=== PATIENT | female | born 1950 | race Caucasian/White ===

== ENCOUNTER 2017-10-14 14:12 | Emergency (ER) | payer MEDICARE, OTHER, SELFPAY ==
[2017-10-14 14:13] VITALS: BP 141/79; PULSE 71; RESP 18; TEMP 36.7; O2SAT 98; BMI 27.5
--- NOTE | 2017-10-14 14:24 | RAD_ITS ---
STUDY: X-RAY - LEFT HAND REASON FOR EXAM: Female, 66 years old. Dogbite yesterday. Pain at base of thumb. TECHNIQUE: 6 view(s) of the hand. COMPARISON: None. FINDINGS: Bones: There are no acute osseous abnormalities. Joints: There is mild osteoarthritic changes. Soft tissues: The soft tissues are unremarkable. Foreign body: None RAD/Hand Min 3 Views IMPRESSION: Osteoarthritic changes with no acute pathology. Electronically Signed: Josue Redman MD at 15:44 EST , Service support ,
--- NOTE | 2017-10-14 14:27 | ED.VISSUMM ---
- ER Visit Summary Date of Service: 10/14/17 Chief Complaint: Dog bite left hand History of Present Illness: The patient is a 66 F is right-handed. Her dog bit her left hand yesterday. She has a puncture wound over the thenar eminence with lymphangitis to the antecubital fossa. There is slight soft tissue swelling erythema without warmth or induration of the left thumb. Patient does have history of valvular heart disease, mitral. She denies history of rheumatic fever, SBE, or be immune suppressed for any reason. She denies any antibiotic allergies. She reports pain with movement. Physical Examination: Vital signs are remarkable for an elevated blood pressure of 141/79. There is a puncture wound over the thenar eminence. Palpation of the area results and brown purulent material. There is lymphangitis to the antecubital fossa. There is no epitrochlear or axillary lymphadenopathy. There is no warmth, induration or fluctuance noted of the thumb or hyperthenar eminence. There is soft tissue swelling and fullness. Heart is regular without murmur, gallop or rub. S1 and S2 are normal. Lungs are clear to auscultation with good movement of air bilaterally. Test Results: Three-view x-ray of the hand was obtained with no evidence of foreign body, abnormality the bone or soft tissue air. Emergency Department Course and Treatment: 3 view x-ray of the hand was obtained to evaluate for fractured tooth. Patient will require incision and drainage of the area and irrigation of the area. Since this injury is secondary to a dog bite she received 3.0 g of Unasyn IV piggyback. Since this lymphangitic streak started less than 24 hours most likely this represents a strep infection. Treatment Plan: The thenar eminence was anesthetized with lidocaine by local nutrition. Incision was made. Blunt dissection was undertaken with bloody brown material noted. The cavity was irrigated. A wick was placed. The wound will be dressed. She did receive 3.0 g of Unasyn in the department. Constantine Urbina iii was paged to assure follow-up on Monday for wound check. Disposition: Discharged home with appropriate home-going instructions and prescription for Augmentin 875 mg twice daily #14 Impression: Dog bite/puncture wound thenar eminence left hand with lymphangitis This note was generated with Dragon dictation software. It may contain incorrect words, spelling, and punctuation that were not noted in review of the chart prior to signing ED Disposition - Plan for ED Patient: Disposition: Home or Assisted Living Chief Complaint: Bite Instructions: ED Bite Dog, ED Infec Skin Cellulitis Prescriptions: Amoxicillin/Potassium Clav [Augmentin 875-125 Tablet] 1 ea PO BID #14 tab Referrals: NOT,DEFINED [NON-STAFF] - Constantine Urbina III, MD [STAFF PHYSICIAN] - 2 Days for wound check Additional Instructions: Do not remove dressing and keep absolutely clean and dry. Dr. Constantine Urbina iii was made aware of your presentation and need for follow-up on Monday.
[2017-10-14] MEDS: Diphth,Pertuss(Acell),Tet Vac 0.5 ML Vial IM (15:51)
[2017-10-14 16:09] VITALS: BP 142/87; PULSE 57; RESP 16; O2SAT 97
--- NOTE | 2017-10-14 16:10 | ED.RN ---
THIS RN REVIEWED DISCHARGE INSTRUCTIONS AND HOME GOING PRESCRIPTIONS AND VERBALIZES UNDERSTANDING. THIS RN DRESSED PT WOUND WITH NON ADHEREANT AND GAUZE 4X4 AND WRAPPED PT HAND WITH CLING WRAP. MINIMAL BLEEDING NOTED AT TIME DRESSING WAS APPLIED. PT TOLERATED WELL. ADACEL SITE CLEAR. THIS RN ASSISTED PT IN TYING LACES ON BOOTS AND DRESSING. PT AMBULATORY OUT TO WAITING ROOM WITH NO ASSISTANCE FROM STAFF.
== END 2017-10-14 16:14 | disposition home or self-care (01) ==
PROVIDERS: Emergency Provider Emergency Medicine
DX: S61.432A Puncture wound without foreign body of left hand, initial encounter (principal); W54.0XXA Bitten by dog, initial encounter; L03.124 Acute lymphangitis of left upper limb; B96.89 Other specified bacterial agents as the cause of diseases classified elsewhere; Y93.9 Activity, unspecified; Y92.9 Unspecified place or not applicable; I05.9 Rheumatic mitral valve disease, unspecified
CPT/HCPCS: 10061; 10060; 73130; 90471; 90715; 96365; 99283; J7050; A4216; J0295

== ENCOUNTER 2018-07-27 17:03 | Emergency (ER) | payer MEDICARE, OTHER, SELFPAY ==
[2018-07-27 17:04] VITALS: BP 146/74; PULSE 67; RESP 16; TEMP 37.3; O2SAT 100; BMI 26.2
[2018-07-27 17:09] VITALS: O2SAT 100
--- NOTE | 2018-07-27 17:21 | CT_ITS ---
STUDY: CT BRAIN WITHOUT CONTRAST REASON FOR EXAM: Female, 67 years old. Trauma. Fell from horse. RADIATION DOSAGE (If Supplied By Facility): CTDIvol = ( 44.99 ) mGy, DLP = ( 829.85 ) mGycm TECHNIQUE: Transaxial CT imaging of the brain was performed without administration of intravenous contrast material. Individualized dose optimization techniques were used for this CT. COMPARISON: None. FINDINGS: Normal soft tissue structures. Normal calvarium. Normal size ventricles and extra-axial spaces for the patient's age. Normal white matter tracts of the cerebral hemispheres. Normal basal ganglia and thalami. Normal brainstem. Normal cerebellum. There is no intracranial hemorrhage. There are no findings of an acute ischemic infarction. Normal visualized paranasal sinuses. CT/Brain/Head without Contrast IMPRESSION: Normal unenhanced CT scan of the brain. Electronically Signed: Edward Faust DO at 20:01 EST Tel [phone], Service support ,
--- NOTE | 2018-07-27 17:21 | CT_ITS ---
STUDY: CT CHEST WITH CONTRAST REASON FOR EXAM: Female, 67 years old. Fall from horse. Trauma. RADIATION DOSAGE (If Supplied By Facility): CTDIvol = ( 17.76 ) mGy, DLP = ( 2166.88 ) mGycm TECHNIQUE: Transaxial imaging was performed following intravenous administration of 100 ml of Isovue 370 contrast material. Multiplanar coronal and sagittal images were reformatted. Individualized dose optimization techniques were used for this CT. COMPARISON: None. FINDINGS: The lungs are well-expanded. There is no mass or infiltrate. There are minimal dependent changes posteriorly. There is no pneumothorax. There is no demonstrated pleural abnormality. Normal heart and pericardium. Normal mediastinum. Normal hilar regions. Normal enhanced pulmonary arteries. Normal aorta arch and descending thoracic aorta. Normal osseous structures. There is no demonstrated abnormality of the visualized upper abdomen. CT/Chest WITH Contrast IMPRESSION: Normal enhanced CT Chest examination. Electronically Signed: Edward Faust DO at 20:00 EST Tel [phone], Service support ,
--- NOTE | 2018-07-27 17:21 | CT_ITS ---
STUDY: CT THORACIC SPINE WITHOUT CONTRAST REASON FOR EXAM: Female, 67 years old. Back pain after falling from a horse. RADIATION DOSAGE (If Supplied By Facility): CTDIvol = ( 29.82 ) mGy, DLP = ( 1119.66 ) mGycm TECHNIQUE: The patient was scanned in a multi detector CT scanner. High resolution imaging was performed. Images were obtained from T1 to L1. Sagittal and coronal images were reconstructed. Individualized dose optimization techniques were used for this CT. COMPARISON: None. FINDINGS: Normal kyphosis of the thoracic spine. There is no substantial scoliosis. Normal thoracic vertebrae and endplates. Mild degenerative disc changes of the mid and lower thoracic spine. Negative for fracture of the thoracic spine. The soft tissue structures are unremarkable. CT/Spine Thoracic without Contras IMPRESSION: Normal alignment of the thoracic spine without acute fracture deformity. Mild degenerative disc changes of the mid and lower thoracic spine. Electronically Signed: Isaura Felipe MD at 20:18 EST , Service support ,
--- NOTE | 2018-07-27 17:21 | CT_ITS ---
STUDY: CT CERVICAL SPINE WITHOUT CONTRAST REASON FOR EXAM: Female, 67 years old. Fall from horse. RADIATION DOSAGE (If Supplied By Facility): CTDIvol = ( 25.36 ) mGy, DLP = ( 565.18 ) mGycm TECHNIQUE: High resolution transaxial imaging was performed without contrast material. Sagittal and coronal images were reconstructed. Individualized dose optimization techniques were used for this CT. COMPARISON: None FINDINGS: Normal craniovertebral junction. There is a fracture of the anterior arch of C1 involving the anterior atlantoaxial joint. There are multiple fractures of the posterior arch with slight displacement. There is a coronal fracture through the body of C1 extending from the base of the odontoid downward to the inferior endplate with fracture line the body from the bilateral pedicles. Posterior arch of C2 is intact. There is no separation of the odontoid process from the body C2. Normal cervical lordosis. There is a fracture through the spinous process of C6. No other evidence of fracture is noted. C2-3: Normal endplates. Normal disc height and morphology. Normal central canal and intervertebral neuroforamina. C3-4: Normal endplates. Normal disc height and morphology. Normal central canal and intervertebral neuroforamina. C4-5: Normal endplates. There is minimal loss of disc height. There is mild facet and uncovertebral joint degenerative changes. Normal central canal and intervertebral neuroforamina. C5-6: Slight loss of disc height with facet joint degenerative change. There is mild facet and uncovertebral joint degenerative change. Normal central canal. There is narrowing of the bilateral intervertebral neuroforamina. C6-7: Normal endplates. Normal disc height and morphology. Is minimal facet and uncovertebral joint degenerative change. Normal central canal and intervertebral neuroforamina. C7-T1: Normal endplates. Normal disc height and morphology. Normal central canal and intervertebral neuroforamina. There is thickening of the prevertebral soft tissues. CT/Spine Cervical without Contras IMPRESSION: 1. Multiple fractures of C1 with slight posterior displacement of the arch. There is an anterior fracture involving the atlantoaxial articulation. 2. Fracture through the body of C2 with separation of both pedicles from the vertebral body 3. Fracture through the spinous process of C6. 4. No evidence of spinal stenosis.. MRI of the cervical spine is recommended to rule out cord injury. Earline Varghese M.D., was advised of these findings via direct telephone communication 2011 EST on July 27, 2018. Electronically Signed: Edward Faust DO at 20:11 EST Tel [phone], Service support ,
--- NOTE | 2018-07-27 17:21 | CT_ITS ---
STUDY: CTA NECK WITH CONTRAST REASON FOR EXAM: Female, 67 years old. Fell from horse and injured neck RADIATION DOSAGE (If Supplied By Facility): CTDIvol = ( 17.76 ) mGy, DLP = ( 2166.88 ) mGycm TECHNIQUE: CT angiography with multi-detector data acquisition was performed from the aortic arch to the skull base following intravenous administration of 100 ml of Isovue 370 contrast. MIP images were reconstructed from the axial data set. Post-processing of the angiographic images was performed, with multiplanar reformation and 3D reconstruction. Individualized dose optimization techniques were used for this CT. COMPARISON: None. FINDINGS: Fracture anterior ring of C1 and posterior arch bilaterally. Midline posterior dysraphism. There is also a nondisplaced fracture in the coronal plane of the C2 vertebral body extending into the transverse foramina bilaterally. Avulsion fracture spinous process C6. AORTIC ARCH: Normal visualized aortic arch. Normal origins of the brachiocephalic, left common carotid, and left subclavian arteries. RIGHT CAROTID ARTERIES: Normal right common carotid artery (CCA). Normal right common carotid bulb. Normal origin of the right internal carotid (ICA) artery without a hemodynamically significant stenosis. Normal visualized cervical portion of the right internal carotid artery. Normal origin of the right external carotid artery (ECA). LEFT CAROTID ARTERIES: Normal left common carotid artery (CCA). Normal left common carotid bulb. Normal origin of the left internal carotid (ICA) artery without a hemodynamically significant stenosis. Normal visualized cervical portion of the left internal carotid artery. Normal origin of the left external carotid artery (ECA). VERTEBRAL ARTERIES: Normal bilateral vertebral arteries. IMPRESSION: Jd burst fracture C1 and fracture C2 vertebral body. Avulsion fracture spinous process C6. Please see CT cervical spine for better detail. Normal bilateral cervical carotid and vertebral arteries. N.B. : The above information has been verbally conveyed by Armen Barrientos MD to Earline Varghese MD, on 07/27/2018 20:17:42 (ET). Electronically Signed: Armen Barrientos MD at 20:09 EST , Service support , CT/CTA Neck W/WO Contrast
--- NOTE | 2018-07-27 17:21 | CT_ITS ---
STUDY: CT ABDOMEN AND PELVIS WITH CONTRAST REASON FOR EXAM: Female, 67 years old. Trauma. Fall from horse. RADIATION DOSAGE (If Supplied By Facility): CTDIvol = ( 17.76 ) mGy, DLP = ( 2166.88 ) mGycm TECHNIQUE: Transaxial images were obtained from the dome of the diaphragm to the symphysis pubis without oral contrast. 100 ml of Isovue 370 contrast was administered. Sagittal and coronal images were reconstructed. Individualized dose optimization techniques were used for this CT. COMPARISON: None. FINDINGS: There is a 1 cm calcified granuloma in the left lateral costophrenic angle. The lungs appear otherwise clear. The visualized portions of the heart are within normal limits. Normal liver. Normal gallbladder and extrahepatic biliary system. Normal spleen. Normal pancreas. Normal bilateral adrenal glands. Normal right kidney. Normal left kidney. Normal visualized stomach. Normal small intestine. There is large amount feces throughout the colon without mass or obstruction. The appendix is visualized and appears normal. There is diffuse atherosclerotic calcification of the abdominal aorta, without a demonstrated aneurysm. Normal inferior vena cava. Normal retroperitoneum. Normal urinary bladder. Uterus is retroverted but otherwise unremarkable. There is no adnexal mass. Distal pelvic lymphadenopathy. No free air or free fluid is seen within the peritoneal cavity. Normal abdominal wall. Are degenerative changes of the lumbar spine. There is anterolisthesis of L5 on S1 of 7 mm with evidence of a right sided pars defect. No evidence of acute fracture. CT/Abdomen/Pelvis W IV Cont ONLY IMPRESSION: 1. No acute intra-abdominal or pelvic abnormality. 2. Old granulomatous disease. 3. Large amount colonic feces consistent with constipation. 4. Anterolisthesis of L5 on S1 with right-sided pars defect. Electronically Signed: Edward Faust DO at 19:54 EST Tel [phone], Service support ,
--- NOTE | 2018-07-27 17:21 | CT_ITS ---
STUDY: CT LUMBAR SPINE WITHOUT CONTRAST REASON FOR EXAM: Female, 67 years old. Fell from horse and injured low back RADIATION DOSAGE (If Supplied By Facility): CTDIvol = ( 30.08 ) mGy, DLP = ( 1129.59 ) mGycm TECHNIQUE: The patient was scanned in a multi detector CT scanner. High resolution transaxial imaging was performed. Images were obtained from thoracic spine to coccyx. Sagittal and coronal images were reconstructed. Individualized dose optimization techniques were used for this CT. COMPARISON: None FINDINGS: Normal lumbar lordosis. Mild levoconvex scoliosis. Normal vertebrae of the lumbar spine. 1 cm anterior subluxation L5 on S1. No definite pars defects. L1-2: Normal endplates. Normal disc height and morphology. Normal bilateral facet joints. Normal central canal and bilateral lateral recesses. Normal bilateral intervertebral neural foramina. L2-3: Normal endplates. Normal disc height and morphology. Normal bilateral facet joints. Normal central canal and bilateral lateral recesses. Narrowed right intervertebral neural foramina. L3-4: Normal endplates. Normal disc height and morphology. Normal bilateral facet joints. Normal central canal and bilateral lateral recesses. Normal bilateral intervertebral neural foramina. L4-5: Normal endplates. Normal disc height and morphology. Normal bilateral facet joints. Normal central canal and bilateral lateral recesses. Normal bilateral intervertebral neural foramina. L5-S1: Unroofing of the posterior disc and severe narrowing of the neural foramina bilaterally. Central canal is patent. Normal visualized paraspinous soft tissue structures. CT/Spine Lumbar without Contrast IMPRESSION: Grade 1 spondylolisthesis L5-S1. Severe narrowing of the neural foramina bilaterally at this level. Electronically Signed: Armen Barrientos MD at 19:56 EST , Service support ,
[2018-07-27] MEDS: Ondansetron 4 MG/2 ML Vial IV (17:37)
[2018-07-27] MEDS: Morphine 4 MG/ML Syringe IV (17:37)
[2018-07-27 17:52] LABS: Absolute Lymphocyte Count 0.83 X10^3/ul (0.83-4.51); Basophil# 0.03 X10^3/uL; Basophil% 0.3 % (0-1); Eosinophil# 0.05 X10^3/uL; Eosinophils% 0.4 % (0-5); Hematocrit 34.1 % (37-47); Hemoglobin 11.3 g/dl (12.0-15.0); Lymphocyte # 0.83 X10^3/ul (4.0); Lymphocyte % 7.1 % (19-41); Mean Corp Hgb Conc 33.1 g/gl (32-36); Mean Corpuscular Hgb 30.6 pg (27.0-32.0); Mean Corpuscular Volume 92.4 fL (81-99); Mean Platelet Vol. 9.5 fl (6.2-12.0); Monocyte# 0.76 X10^3/uL; Monocyte% 6.5 % (0-10); Neutrophil # 9.99 X10^3/uL (2.7-7.7); Neutrophil % 85.5 % (47-70); Platelet Count 246 K/mm3 (150-450); RBC Distribution Width CV 13.2 % (11.6-14.6); RBC Distribution Width SD 44.2 fl (35.1-43.9); Red Blood Count 3.69 M/mm3 (4.2-5.4); White Blood Count 11.7 K/mm3 (4.4-11.0)
[2018-07-27 17:53] LABS: POSITIVE COUNT NO; POSITIVE DIFFERENTIAL NO; POSITIVE MORPHOLOGY NO
[2018-07-27 18:05] LABS: Anion Gap 7 (5-15); BUN 27 mg/dL (7-18); BUN/Creat Ratio 32.2 RATIO (10-20); Calcium,Total 8.5 mg/dL (8.5-10.1); Chloride 108 mmol/L (98-107); Creatinine, Serum 0.84 mg/dL (0.55-1.02); EST Glomerular Filtration Rate 72 mL/min (>60); Est Glom Filt Rate - Afr Amer 87 mL/min (>60); Estimated Creatinine Clearance 58.48 ml/min; Glucose 125 mg/dL (74-106); Potassium 3.7 mmol/L (3.5-5.1); Sodium Level 140 mmol/L (136-145)
--- NOTE | 2018-07-27 18:16 | ED.VISSUMM ---
- ER Visit Summary Date of Service: 07/27/18 Chief Complaint: Fall off horse History of Present Illness: The patient is a 67 F presenting after a fall off a horse. States the horse bucked and she fell. She was wearing a helmet. The horse is approximately 6 feet tall. She did hit her head but did not lose consciousness. She laid on the ground for 40 minutes before someone found her. When she was helped up she was able to ambulate. She has pain of her neck and upper back. She has tingling of both hands. She denies weakness. Denies any other complaints. Physical Examination: Vitals are stable. Patient is afebrile. Alert no acute distress. HEENT exam is unremarkable. Neck is diffuse tenderness, c-collar in place Lungs are clear and equal bilaterally. Heart is regular rate and rhythm. Abdomen is soft nontender nondistended. No guarding or rebound Back: Diffuse thoracic tenderness Extremities are unremarkable. Skin is warm and dry. No focal neurologic deficit. Normal strength bilaterally Remainder of exam is unremarkable. Emergency Department Course and Treatment: Patient was given morphine, Zofran IV. CBC, chemistries unremarkable other than glucose 125, BUN 27. CT brain shows no acute process. CT chest, abdomen and pelvis shows no acute process, constipation. CT lumbar spine shows grade 1 spondylolisthesis L5-S1. Severe narrowing of the neural foramina bilaterally at this level. CT cervical spine shows multiple fractures of C1 with slight posterior displacement of the arch. There is an anterior fracture involving the atlantoaxial articulation. Fracture through the body of C2 with separation of both pedicles from the vertebral body. Fracture through the spinous process of C6. No evidence of spinal stenosis. MRI of the cervical spine is recommended to rule out cord injury. CT thoracic spine shows normal alignment of the thoracic spine without acute fracture deformity. Mild degenerative disc changes of the mid and lower thoracic spine. CTA neck shows Jd burst fracture C1 and fracture C2 vertebral body. Avulsion fracture spinous process C6. Normal bilateral cervical carotid and vertebral arteries. Patient prefers [facility] for transfer. Discussed with [facility] transfer line and patient will be transferred by air to [facility]. Disposition: Transfer to [facility] Impression: Jd burst fracture C1, C2 vertebral body fracture, C6 spinous process fracture; status post fall from horse This note was generated with [employer] software. It may contain incorrect words, spelling, and punctuation that were not noted in review of the chart prior to signing ED Disposition - Plan for ED Patient: Chief Complaint: Fall Referrals: [facility] Doctor,Out of [Primary Care Provider] -
[2018-07-27 18:52] VITALS: BP 123/60; PULSE 67; RESP 16; O2SAT 93
[2018-07-27 20:52] VITALS: BP 124/71; PULSE 74; RESP 16; O2SAT 97
[2018-07-27] MEDS: fentaNYL 100 MCG/2 ML Ampul 50 MCG IV (20:55)
[2018-07-27 21:00] VITALS: BP 119/61; PULSE 73; RESP 16; O2SAT 97
[2018-07-27 21:06] VITALS: BP 127/61; PULSE 74; RESP 16; O2SAT 97
== END 2018-07-27 21:39 | disposition short-term general hospital (02) ==
PROVIDERS: Emergency Provider Emergency Medicine
DX: S12.01XA Stable burst fracture of first cervical vertebra, initial encounter for closed fracture (principal); S12.190A Other displaced fracture of second cervical vertebra, initial encounter for closed fracture; S12.590A Other displaced fracture of sixth cervical vertebra, initial encounter for closed fracture; V80.010A Animal-rider injured by fall from or being thrown from horse in noncollision accident, initial encounter; Y93.52 Activity, horseback riding; M43.17 Spondylolisthesis, lumbosacral region; M51.34 Other intervertebral disc degeneration, thoracic region
CPT/HCPCS: 51702; 70450; 70498; 71260; 72125; 72128; 72131; 74177; 80048; 85025; 96374; 96375; 99285; J7030; Q9967; A4216; J2405

== ENCOUNTER 2018-08-21 10:39 | Outpatient (RCR) | payer MEDICARE, OTHER, SELFPAY ==
--- NOTE | 2018-08-21 12:51 | HP.PTEVAL_ITS ---
Patient's Visit Information DANYELLE OAKES is a 67 year old F referred to Physical Therapy by HAILEY MEDINA with a diagnosis of OPEN NONDISPLACED FRACTURE OF IST CERVICAL VERTEBRA WITH ROUTINE HEALING. Date of Evaluation: 08/21/18 Physical Therapist: Elio Damon, PT, Cert MDT, [facility] - Visit Plan Frequency: 1 VISIT Plan: Patient chart will be on hold until HALO removed. Patient states doing well and would rather wait for PT until sees DR and remove Halo for cervical reg ion if needed per MD - Subjective Findings: This 67 y/o female presents to physical therapy Cervical fracture C1-2 and C6 . Patient thrown off of her horse 07/27/18.Patient assited patient to house ,then unable to get out of bed . ER via ambulance at [facility] ,did CATSCAN x C-spine. Patient was lifeflghted to [facility] ,patient was in collar until Monday thus placed in halo 07/30/18.Patient had Rehab 10 days then d/c to home,since last .Patient d/c to home with fww.Patient has tightness pain in cervical region. Denies parathesia/tingling. Bowel/bladder-.Patient denies denies DILLON/tinnutus/nausea. Patient has difficulty sleeping at night.Patient RTD in Sep 07 ,yesterday x-rays looked good. Patient condition impairs QOL and function . SOCAIL: . HOBBIES: Horse. VOCATION: retired - Pain Bilateral Neck Pain Intensity (Out of 10): 3 Pain Intensity Range: 10 - Objective POSTURE: foward posture ,HALO intact. GAIT: normal nuris slow reciprocal patterm. BALANCE: good -. STAIRS: one steps at time. NEURO: intact ,reflexes 3/3. BLE: AROM WFL. MMT: QUADS/HAMS/HIP 4/5 ,ANKLE 4/5. BUE 4/5 grossly - Rehabilitation Potential Physical Therapy Diagnosis: This patient was thrown from horse sustained cervical fracture ,transferred to [facility] had HALO place with min impairments . Patient walking independant,good strength BLE,neuro intact.Iparmnts with ADL'S Rehabilitation Potential: Good - Anticipated Interventions Patient/Client Instruction: Educate patient on: Condition, Plan of Care For the Purpose of:: To improve ability of physical actions for home/community/work/leisure Thank you for the opportunity to evaluate your patient. For Medicare and Medicare HMO plans, please review the plan of care and approve it. It will need to be FAXED BACK to us at [phone] for Medicare purposes. For Medicare only, by signing this I certify the plan of care. Please let me know if there are questions or concerns regarding this plan of care. Physician Signature: Date:
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
--- NOTE | 2018-11-16 17:00 | HP.PT.NRP ---
HP - Discharge Summary (1) - Patient Information DANYELLE OAKES was seen in my office for initial evaluation on 08/21/18. The following Plan of Care was established for this patient: Initial Frequency: 1 VISIT - Anticipated Interventions Patient/Client Instruction: Educate patient on: Condition, Plan of Care For the Purpose of:: To improve ability of physical actions for home/community/work/leisure This patient was last seen in our office . Pertinent comments regarding their Physical therapy will appear below: At this point I will be discontinuing this patient from physical therapy. I would be happy to see this patient again in the future if found appropriate by the physician. Thank you! Elio Damon, PT, Cert MDT, OCS
--- OUTSIDE RECORDS SUMMARY | 2018-11-22 18:50 | XMS RPT_ITS ---
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 transferred to general surgical floor on 08/01/18. Pt recently d/c from [facility] in [place] last week for PT. Follows with Insurance Representative Dr. Cristofer Mcclellan who suggested that she needed a local Physician in [place] for Primary Care. Pt was given Oxycodone for pain, doesn't use it, but does have it on hand if needed. Followed up with Dr. Mcclellan yesterday who was happy with the healing. She will need to wear the halo for 8 weeks, then reduce to the collar. Pt wonders if calcium would help with healing and if so Daughter will be having surgery on 09/10/18 where patient will be there with her. Past medical history, appointments, medications, allergies reviewed. Previous Medical History PAST MEDICAL HISTORY Diagnosis Date - History of cervical fracture 07/27/2018 - Undiagnosed cardiac murmurs Previous Surgical History PAST SURGICAL HISTORY Procedure Laterality Date - BREAST BIOPSY left breast - DELIVERY ONLY 1985 , low cervical - COLONOSCOP W/ OR W/O [facility] SPEC 08/03/2006 Colonoscopy 2005 and 2016 - EXTRACTION ERUPTED TOOTH wisdom teeth - PAST SURGICAL HISTORY OF right hand index finger Family History FAMILY HISTORY Problem Relation Age of Onset - Hypertension Mother - Psychiatry Father suicide age 30 - Kidney Disease Daughter Patient Allergies ALLERGIES Allergen Reactions - Seasonal Allergies Other: See Comments Current Medications Current Outpatient Prescriptions on File Prior to Visit: Ibuprofen 200 mg cap Take 400 mg by mouth as needed. multivitamin tablet Take 1 tablet by mouth once daily. Occasional No current facility-administered medications on file prior to visit. 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 General Appearance: Well appearing, alert, in no acute distress, well-hydrated, well nourished. In halo for cervical fx. Lungs: lungs clear to auscultation. No wheezing, rhonchi, rales. Heart: RRR without murmur, gallop, or rubs. No ectopy. Health Maintenance List DTAP,TDAP,TD(1 - Tdap) due on 09/27/2007 PNEUMOVAX AGE 65 AND OVER WITH 5YR LOOKBACK(1) due on 11/23/2015 MAMMOGRAM due on 12/07/2017 INFLUENZA(1) due on 05/05/2018 DIABETES SCREEN due on 10/20/2018 LIPID SCREEN due on 01/03/2022 COLORECTAL CANCER SCREENING,SEE MODIFIER due on 01/04/2027 BONE DENSITY Completed ADULT PREVNAR-13 Completed HEPATITIS C SCREENING Completed Data reviewed Records within [facility] from [facility] ASSESSMENT/PLAN: 1. Encounter to establish care - ICD9: V65.8, ICD10: Z76.89 (primary diagnosis) - Follow up prn 2. Recurrent UTI (urinary tract infection) - ICD9: 599.0, ICD10: N39.0 recurrent - Pt to complete Urine on Monday once finished with abx 3. History of cervical fracture - ICD9: V15.51, ICD10: Z87.81 - Cont f/u with Dr. Mcclellan Follow up prn; will call with urine results I agree with the Chief Complaint, ROS, and Past Histories independently gathered by the clinical pc support specialist and the remaining scribed note accurately describes my personal service to the patient. Leonor Ayala MD The documentation for this note was completed by Anali Navarro Ma acting as scribe for Leonor Ayala MD. August 21, 2018 8:49 AM. XR SPINE CERVICAL 2 Observed: 08/20/2018 Status: F Source: [facility] 12:41 PM [facility] REPOSITORY EXAM: XR SPINE CERVICAL 2 VIEWS , 08/20/2018 12:25 PM COMPARISON: 08/02/2018 CLINICAL INDICATIONS: fracture RELEVANT CLINICAL HISTORY: S12.101D:Closed nondisplaced fracture of second cervical vertebra with routine healing, unspecified fracture morphology, subsequent encounter S12.001D:Closed nondisplaced fracture of first cervical vertebra with routine healing, unspecified fracture morphology, subsequent encounter Ap/lateral standing/upright; FINDINGS: 2 images obtained Cervical Vertebral: Kyphotic angulation of cervical spine with apex at C4/C5. Cervical vertebral bodies are normal in height. There is evidence of a displaced fracture involving the posterior aspect of C2 vertebral body which appears to extend into the spinolaminar region. Teardrop displaced fracture fragment from the anteroinferior corner of C2 is also present without change in alignment. Fracture along the spinous process of C1 also redemonstrated. Disc: Disc spaces are stable. Joint: Facet joints appear anatomically aligned. Soft Tissue: Prevertebral soft tissue swelling is present.. IMPRESSION: Grossly stable alignment at C1 and C2 fractures. TIC FUNCTION Collected: 08/15/2018 Status: F Source: [facility] PANEL 4:37 AM [facility] REPOSITORY TYPE CODE TESTS RESULT OUT OF REFERENCE UNITS RANGE LAB ALB 3.5-5.0 g/dL Albumin 4.1 LAB BILD <0.3 mg/dL Bilirubin Direct 0.1 LAB BILT <1.5 mg/dL Bilirubin Total 0.4 LAB ALP 32-126 U/L Alkaline Phosphatase 68 LAB ALT 9-48 U/L ALT 46 LAB AST 14-40 U/L AST 17 LAB TP 6.4-8.3 g/dL Total Protein 6.8 Performed By: #### HFP #### [place] [id number] TROPONIN I Collected: 08/14/2018 Status: F Source: [facility] 7:49 PM [facility] REPOSITORY TYPE CODE TESTS RESULT OUT OF REFERENCE UNITS RANGE LAB TROP <0.11 ng/mL Troponin I <0.01 Performed By: #### TROP #### [facility] [address] [place] [id number] [place] [address] [address] [place], [place] [address] CBC,PLATELET,DIFFERENTIAL - CCL Collected: Status: F Source: [facility] 08/14/2018 7:41 PM [facility] REPOSITORY TYPE CODE TESTS RESULT OUT OF REFERENCE UNITS RANGE LAB WBC 3.99-11.19 K/uL WBC Count 6.13 LAB RBC 3.91-5.04 M/uL RBC Count 3.62 Low LAB HGB 11.4-15.2 g/dL Hemoglobin 11.0 Low LAB HCT 34.9-44.3 % Hematocrit 33.3 Low LAB MCV 79.6-97.7 fL Mean Cell 92.0 Volume LAB MCH 25.9-33.9 pg Mean Cell 30.4 Hgb LAB MCHC 31.4-35.9 g/dL Mean Cell 33.0 Hgb Conc LAB RDW 10.8-14.9 % RBC 12.7 Distribution LAB PLT 150-393 K/uL Platelet 388 Count LAB MPV 8.5-12.2 fL Mean 9.6 Platelet Volume LAB NRBC 0.0-0.2 /100 WBC NUCLEATED 0.0 RBC LAB DTYPE Electronic DIFFERENTIAL TYPE Differential LAB IGRE % IMMATURE 0.3 GRANS % LAB SEGS % NEUTROPHIL 59.2 SEGMENTED LAB LYM % LYMPHOCYTE 26.1 % LAB MON % MONOCYTE % 10.6 LAB EOS % *EOSINOPHIL 2.8 % LAB BASO % BASOPHIL % 1.0 LAB IGABS 0.00-0.08 K/uL IMMATURE <0.04 GRANS ABSOLUTE LAB SBANS 1.64-7.28 K/uL SEGS + 3.63 Bands,Absolute LAB ALYM 1.16-3.51 K/uL Abs Lymph 1.60 LAB AMONO 0.22-0.87 K/uL Abs Durham 0.65 LAB AEOS 0.00-0.42 K/uL Abs Eos 0.17 LAB ABASO 0.00-0.15 K/uL Abs Baso 0.06 Performed By: #### CBCDFC, CHM6 #### [facility] [address] [place] [address] [facility] [address] [place] [id number] CHEM 6 Collected: 08/14/2018 Status: F Source: [facility] 7:41 PM [facility] REPOSITORY TYPE CODE TESTS RESULT OUT OF REFERENCE UNITS RANGE LAB BUN 7-22 mg/dL BUN High 25 LAB NA 133-143 mmol/L Sodium 137 LAB K 3.5-5.0 mmol/L Potassium 3.7 LAB CL 98-108 mmol/L Chloride 101 LAB CO2 22-30 mmol/L Carbon Dioxide 29 LAB CREA 0.50-1.20 mg/dL Creatinine 0.72 LAB GAP 7-17 mmol/L Anion Gap 11 LAB BC BUN/CREA Ratio 35 LAB GFR >60 mL/min/1.73 sqM Est GFR,non >60 Burkinan LAB GFRA >60 mL/min/1.73 sqM Est GFR, >60 Performed By: #### CBCDFC, [facility] #### [facility] [address] [place] [address] [place] [address] LACTATE, BLOOD Collected: 08/14/2018 Status: F Source: [facility] 7:41 PM [facility] REPOSITORY TYPE CODE TESTS RESULT OUT OF RANGE REFERENCE UNITS LAB LACT 0.5-1.6 mmol/L Lactate, 1.1 Blood Performed By: #### LACT #### [facility] [address] [place] [address] [place] [address] URINALYSIS REFLEX Collected: 08/14/2018 Status: F Source: [facility] CULTURE 9:49 AM [facility] REPOSITORY TYPE CODE TESTS RESULT OUT OF RANGE REFERENCE UNITS LAB MAINTENANCE PLANNER Clear Appearance Abnormal Urine Turbid LAB SPGR 1.001-1.035 Specific Armbrust urine 1.014 LAB UGL Negative mg/dL Glucose Urine Negative LAB UKET Negative Ketones Urine Negative LAB UBLD Negative Blood Urine Abnormal Moderate LAB UPH 5.0-7.0 High pH Urine 7.5 LAB UPR Negative mg/dL Protein Abnormal Urine 30 LAB UNTR Negative Nitrites Abnormal Urine POSITIVE LAB ULEU Negative Leukocyte Abnormal Esterase Large LAB COLR Yellow Color Yellow LAB UURO <2.0 EU/dL Urobilinogen 1.0 urine LAB UWBC 0-5 /HPF WBC Urine Abnormal >20 LAB URBC 0-2 /HPF RBC Urine 0-2 LAB BACT Absent Bacteria Abnormal Present LAB UCOM COMMENT URINE Clumped WBCs LAB EPIS /HPF Squamous Epithelial None Performed By: #### URIN1 #### [facility] [address] [place] [address] [facility] [address] [place], [place] [address] Observed: 08/14/2018 Status: F Source: [facility] URINE CULTURE -E 9:49 AM [facility] REPOSITORY SOURCE: URINE-CLEAN CATCH: RESULT: ESCHERICHIA COLI :CONFIRMED ESBL PANTS PRESSER AUTOMATIC :Greater than 100,000 CFU/ML ---> RVW (NOTE) CONTACT ISOLATION IS REQUIRED FOR INPATIENTS WITH CONFIRMED ESBL PRODUCERS. ESBL PRODUCERS ARE LIKELY CLINICALLY RESISTANT TO THERAPY WITH PENICILLINS, CEPHALOSPORINS AND AZTREONAM. Fosfomycin i s indicated for Urinary Tract Infections ONLY. Interpretive guidelines for Fosfomycin are those suggested by the call person in the package insert using breakpoints established for aerobes. REPORT STATUS: 08/17/2018 FINAL ORGANISM: ESCHERICHIA COLI SUSCEPTIBILITY ESCHERICHIA COLI :CONFIRMED ESBL PANTS PRESSER AUTOMATIC :Greater than 100,000 CFU/ML ANTIBIOTIC INTERPRETATION ELENA STATUS AMIKACIN SS <=2 F AMPICILLIN R >=32 F AMPICILLIN/SULB. R 16 F CEFAZOLIN R >=64 F CEFEPIME R 2 F CEFTRIAXONE R >=64 F CIPROFLOXACIN R >=4 F ERTAPENEM SS <=0.5 F GENTAMICIN SS <=1 F MEROPENEM SS <=0.25 F NITROFURANTOIN SS <=16 F PIPERACILLIN/ABDULAZIZ. R <=4 F TOBRAMYCIN SS <=1 F TRIMETHOPRIM/SULFA. SS <=20 F ORGANISM: ESCHERICHIA COLI SUSCEPTIBILITY ESCHERICHIA COLI :CONFIRMED ESBL PANTS PRESSER AUTOMATIC :Greater than 100,000 CFU/ML METHOD TYPE GRADIENT STRIPF FOSFOMYCIN SS 1 F Performed By: #### UR #### [address] [address] Blood Cultures processed at: [facility] CBC,PLATELET,DIFFERENTIAL - CCL Collected: Status: F Source: [facility] 08/13/2018 5:49 AM [facility] REPOSITORY TYPE CODE TESTS RESULT OUT OF REFERENCE UNITS RANGE LAB WBC 3.99-11.19 K/uL WBC Count 5.13 LAB RBC 3.91-5.04 M/uL RBC Count 3.83 Low LAB HGB 11.4-15.2 g/dL Hemoglobin 11.7 LAB HCT 34.9-44.3 % Hematocrit 35.1 LAB MCV 79.6-97.7 fL Mean Cell 91.6 Volume LAB MCH 25.9-33.9 pg Mean Cell 30.5 Hgb LAB MCHC 31.4-35.9 g/dL Mean Cell 33.3 Hgb Conc LAB RDW 10.8-14.9 % RBC 12.6 Distribution LAB PLT 150-393 K/uL Platelet 433 High Count LAB MPV 8.5-12.2 fL Mean 10.0 Platelet Volume LAB NRBC 0.0-0.2 /100 WBC NUCLEATED 0.0 RBC LAB DTYPE Electronic DIFFERENTIAL TYPE Differential LAB IGRE % IMMATURE 0.4 GRANS % LAB SEGS % NEUTROPHIL 55.2 SEGMENTED LAB LYM % LYMPHOCYTE 29.2 % LAB MON % MONOCYTE % 9.9 LAB EOS % *EOSINOPHIL 3.7 % LAB BASO % BASOPHIL % 1.6 LAB IGABS 0.00-0.08 K/uL IMMATURE <0.04 GRANS ABSOLUTE LAB SBANS 1.64-7.28 K/uL SEGS + 2.83 Bands,Absolute LAB ALYM 1.16-3.51 K/uL Abs Lymph 1.50 LAB AMONO 0.22-0.87 K/uL Abs Durham 0.51 LAB AEOS 0.00-0.42 K/uL Abs Eos 0.19 LAB ABASO 0.00-0.15 K/uL Abs Baso 0.08 Performed By: #### CBCDFC, PALB, CA, CHM7, HFP, MGO #### [facility] [address] [place] [address] [address] [place], [place] [address] PREALBUMIN Collected: 08/13/2018 Status: F Source: [facility] 5:49 AM [facility] REPOSITORY TYPE CODE TESTS RESULT OUT OF REFERENCE UNITS RANGE LAB PALB 17-34 mg/dL Prealbumin 25 Performed By: #### CBCDFC, PALB, CA, CHM7, HFP, MGO #### [facility] [address] [place] [address] [place] [id number] CALCIUM Collected: 08/13/2018 Status: F Source: [facility] 5:49 AM [facility] REPOSITORY TYPE CODE TESTS RESULT OUT OF REFERENCE UNITS RANGE LAB CA 8.6-10.5 mg/dL Calcium 9.4 Performed By: #### CBCDFC, PALB, CA, CHM7, HFP, MGO #### [facility] [address] [place] [address] [facility] [address] [place] [id number] CHEM 7 Collected: 08/13/2018 Status: F Source: [facility] 5:49 AM [facility] REPOSITORY TYPE CODE TESTS RESULT OUT OF REFERENCE UNITS RANGE LAB BUN 7-22 mg/dL BUN High 24 LAB NA 133-143 mmol/L Sodium 139 LAB K 3.5-5.0 mmol/L Potassium 3.9 LAB CL 98-108 mmol/L Chloride 102 LAB CO2 22-30 mmol/L Carbon Dioxide 27 LAB GLUC 70-99 mg/dL Glucose 97 LAB CREA 0.50-1.20 mg/dL Creatinine 0.66 LAB GAP 7-17 mmol/L Anion Gap 14 LAB BC BUN/CREA Ratio 36 LAB OSMC 278-305 mOsm/kg Osmolality 295 (Calc) LAB GFR >60 mL/min/1.73 sqM Est GFR,non >60 Burkinan LAB GFRA >60 mL/min/1.73 sqM Est GFR, >60 Performed By: #### CBCDFC, PALB, CA, CHM7, HFP, MGO #### [facility] [address] [place] [address] [facility] [address] [place] [id number] HEPATIC FUNCTION Collected: 08/13/2018 Status: F Source: [facility] 5:49 AM [facility] REPOSITORY TYPE CODE TESTS RESULT OUT OF REFERENCE UNITS RANGE LAB ALB 3.5-5.0 g/dL Albumin 4.2 LAB BILD <0.3 mg/dL Bilirubin Direct 0.1 LAB BILT <1.5 mg/dL Bilirubin Total 0.4 LAB ALP 32-126 U/L Alkaline Phosphatase 75 LAB ALT 9-48 U/L ALT High 69 LAB AST 14-40 U/L AST 28 LAB TP 6.4-8.3 g/dL Total Protein 7.0 Performed By: #### CBCDFC, PALB, CA, CHM7, HFP, MGO #### [facility] [address] [place] [address] [facility] [address] [place] [address] MAGNESIUM Collected: 08/13/2018 Status: F Source: [facility] 5:49 AM [facility] REPOSITORY TYPE CODE TESTS RESULT OUT OF REFERENCE UNITS RANGE LAB MG 1.6-2.6 mg/dL Magnesium 2.1 Performed By: #### CBCDFC, PALB, CA, CHM7, HFP, MGO #### [facility] [address] [place] [address] [place] [address] URINALYSIS REFLEX Collected: 08/08/2018 Status: F Source: [facility] CULTURE 12:45 PM [facility] REPOSITORY TYPE CODE TESTS RESULT OUT OF RANGE REFERENCE UNITS LAB MAINTENANCE PLANNER Clear Appearance Urine Clear LAB SPGR 1.001-1.035 Specific Armbrust urine 1.014 LAB UGL Negative mg/dL Glucose Urine Negative LAB UKET Negative Ketones Urine Negative LAB UBLD Negative Blood Urine Negative LAB UPH 5.0-7.0 pH Urine 6.5 LAB UPR Negative mg/dL Protein Urine Negative LAB UNTR Negative Nitrites Urine Negative LAB ULEU Negative Leukocyte Abnormal Esterase Small LAB COLR Yellow Color Yellow LAB UURO <2.0 EU/dL Urobilinogen 1.0 urine LAB UWBC 0-5 /HPF WBC Urine Abnormal >20 LAB URBC 0-2 /HPF RBC Urine 0-2 LAB BACT Absent Bacteria Absent LAB UCOM COMMENT URINE None LAB EPIS /HPF Squamous Epithelial 1+ Performed By: #### URIN1 #### [facility] [address] [place], [place] [id number] [facility] [address] [place] [address] Observed: 08/08/2018 Status: F Source: [facility] URINE CULTURE -UHE 12:45 PM [facility] REPOSITORY SOURCE: URINE-CLEAN CATCH: RESULT: NO GROWTH REPORT STATUS: 08/10/2018 FINAL Performed By: #### UR #### [facility] [address] [place] [address] Blood Cultures processed at: [facility] HEMOGRAM (CBC AND Collected: 08/08/2018 Status: F Source: [facility]) 5:04 AM [facility] REPOSITORY TYPE CODE TESTS RESULT OUT OF REFERENCE UNITS RANGE LAB WBC 3.99-11.19 K/uL WBC Count 5.27 LAB RBC 3.91-5.04 M/uL Low RBC Count 3.68 LAB HGB 11.4-15.2 g/dL Low Hemoglobin 11.0 LAB HCT 34.9-44.3 % Low Hematocrit 33.3 LAB MCV 79.6-97.7 fL Mean Cell Volume 90.5 LAB MCH 25.9-33.9 pg Mean Cell Hgb 29.9 LAB MCHC 31.4-35.9 g/dL Mean Cell Hgb Conc 33.0 LAB RDW 10.8-14.9 % RBC Distribution 12.7 LAB PLT 150-393 K/uL Platelet Count 356 LAB MPV 8.5-12.2 fL Mean Platelet Volume 9.6 LAB NRBC 0.0-0.2 /100 WBC NUCLEATED RBC 0.0 Performed By: #### HEMOGC, HFP #### [facility] [address] [place] [id number] [place] [address] [address] [place], [place] [address] HEPATIC FUNCTION Collected: 08/08/2018 Status: F Source: [facility] PANEL 5:04 AM [facility] REPOSITORY TYPE CODE TESTS RESULT OUT OF REFERENCE UNITS RANGE LAB ALB 3.5-5.0 g/dL Albumin 3.9 LAB BILD <0.3 mg/dL Bilirubin Direct 0.1 LAB BILT <1.5 mg/dL Bilirubin Total 0.4 LAB ALP 32-126 U/L Alkaline Phosphatase 78 LAB ALT 9-48 U/L ALT High 112 LAB AST 14-40 U/L AST High 59 LAB TP 6.4-8.3 g/dL Total Protein 6.9 Performed By: #### HEMOGC, HFP #### [facility] [address] [place] [address] [place] [address] CBC,PLATELET,DIFFERENTIAL - CCL Collected: Status: F Source: [facility] 08/06/2018 2:33 AM [facility] REPOSITORY TYPE CODE TESTS RESULT OUT OF REFERENCE UNITS RANGE LAB WBC 3.99-11.19 K/uL WBC Count 5.07 LAB RBC 3.91-5.04 M/uL RBC Count 3.55 Low LAB HGB 11.4-15.2 g/dL Hemoglobin 10.8 Low LAB HCT 34.9-44.3 % Hematocrit 32.9 Low LAB MCV 79.6-97.7 fL Mean Cell 92.7 Volume LAB MCH 25.9-33.9 pg Mean Cell 30.4 Hgb LAB MCHC 31.4-35.9 g/dL Mean Cell 32.8 Hgb Conc LAB RDW 10.8-14.9 % RBC 13.0 Distribution LAB PLT 150-393 K/uL Platelet 334 Count LAB MPV 8.5-12.2 fL Mean 10.2 Platelet Volume LAB NRBC 0.0-0.2 /100 WBC NUCLEATED 0.0 RBC LAB DTYPE Electronic DIFFERENTIAL TYPE Differential LAB IGRE % IMMATURE 0.4 GRANS % LAB SEGS % NEUTROPHIL 59.2 SEGMENTED LAB LYM % LYMPHOCYTE 23.3 % LAB MON % MONOCYTE % 11.6 LAB EOS % *EOSINOPHIL 4.3 % LAB BASO % BASOPHIL % 1.2 LAB IGABS 0.00-0.08 K/uL IMMATURE <0.04 GRANS ABSOLUTE LAB SBANS 1.64-7.28 K/uL SEGS + 3.00 Bands,Absolute LAB ALYM 1.16-3.51 K/uL Abs Lymph 1.18 LAB AMONO 0.22-0.87 K/uL Abs Durham 0.59 LAB AEOS 0.00-0.42 K/uL Abs Eos 0.22 LAB ABASO 0.00-0.15 K/uL Abs Baso 0.06 Performed By: #### CBCDFC, CA, CHM7, HFP, MGO, PALB #### [facility] [address] [place] [address] CALCIUM Collected: 08/06/2018 Status: F Source: [facility] 2:33 [facility] REPOSITORY TYPE CODE TESTS RESULT OUT OF REFERENCE UNITS RANGE LAB CA 8.6-10.5 mg/dL Calcium 9.2 Performed By: #### CBCDFC, CA, CHM7, HFP, MGO, PALB #### [facility] [address] [place] [address] CHEM 7 Collected: 08/06/2018 Status: F Source: [facility] 2:[address] [place] [address] REPOSITORY TYPE CODE TESTS RESULT OUT OF REFERENCE UNITS RANGE LAB BUN 7-22 mg/dL BUN 22 LAB NA 133-143 mmol/L Sodium 138 LAB K 3.5-5.0 mmol/L Potassium 4.2 LAB CL 98-108 mmol/L Chloride 100 LAB CO2 22-30 mmol/L Carbon Dioxide 27 LAB GLUC 70-99 mg/dL Glucose 99 LAB CREA 0.50-1.20 mg/dL Creatinine 0.70 LAB GAP 7-17 mmol/L Anion Gap 15 LAB BC BUN/CREA Ratio 31 LAB OSMC 278-305 mOsm/kg Osmolality 293 (Calc) LAB GFR >60 mL/min/1.73 sqM Est GFR,non >60 Burkinan LAB GFRA >60 mL/min/1.73 sqM Est GFR, >60 Performed By: #### CBCDFC, CA, CHM7, HFP, MGO, PALB #### [facility] [address] [place] [address] [address] [place] [address] HEPATIC FUNCTION Collected: 08/06/2018 Status: F Source: [facility] PANEL 2:33 AM [facility] REPOSITORY TYPE CODE TESTS RESULT OUT OF REFERENCE UNITS RANGE LAB ALB 3.5-5.0 g/dL Albumin 3.7 LAB BILD <0.3 mg/dL Bilirubin Direct 0.1 LAB BILT <1.5 mg/dL Bilirubin Total 0.5 LAB ALP 32-126 U/L Alkaline Phosphatase 78 LAB ALT 9-48 U/L ALT High 111 LAB AST 14-40 U/L AST High 77 LAB TP 6.4-8.3 g/dL Total Protein 6.7 Performed By: #### CBCDFC, CA, CHM7, HFP, MGO, PALB #### [facility] [address] [place] [address] [address] [place] [address] MAGNESIUM Collected: 08/06/2018 Status: F Source: [facility] 2:33 AM [facility] REPOSITORY TYPE CODE TESTS RESULT OUT OF REFERENCE UNITS RANGE LAB MG 1.6-2.6 mg/dL Magnesium 2.1 Performed By: #### CBCDFC, CA, CHM7, HFP, MGO, PALB #### [facility] [address] [place] [address] [address] [place] [address] PREALBUMIN Collected: 08/06/2018 Status: F Source: [facility] 2:33 AM [facility] REPOSITORY TYPE CODE TESTS RESULT OUT OF REFERENCE UNITS RANGE LAB PALB 17-34 mg/dL Prealbumin 23 Performed By: #### CBCDFC, CA, CHM7, HFP, MGO, PALB #### [facility] [address] [place] [address] [address] [place] [address] URINALYSIS REFLEX Collected: 08/04/2018 Status: F Source: [facility] CULTURE 2:10 PM [facility] REPOSITORY TYPE CODE TESTS RESULT OUT OF RANGE REFERENCE UNITS LAB MAINTENANCE PLANNER Clear Appearance Abnormal Urine Cloudy LAB SPGR 1.001-1.035 Specific Armbrust urine 1.009 LAB UGL Negative mg/dL Glucose Urine Negative LAB UKET Negative Ketones Urine Negative LAB UBLD Negative Blood Urine Abnormal Small LAB UPH 5.0-7.0 pH Urine 6.5 LAB UPR Negative mg/dL Protein Abnormal Urine Trace LAB UNTR Negative Nitrites Urine Negative LAB ULEU Negative Leukocyte Abnormal Esterase Large LAB COLR Yellow Color Yellow LAB UURO <2.0 EU/dL Urobilinogen 1.0 urine LAB UWBC 0-5 /HPF WBC Urine Abnormal >20 LAB URBC 0-2 /HPF RBC Urine Abnormal 6-9 LAB BACT Absent Bacteria Abnormal Present LAB UCOM COMMENT URINE None LAB EPIS /HPF Squamous Epithelial Absent Performed By: #### [email or web address] #### [facility] [place] [address] [place] [address] Observed: 08/04/2018 Status: F Source: [facility] URINE CULTURE -E 2:10 PM [facility] REPOSITORY SOURCE: URINE-CLEAN CATCH: RESULT: ESCHERICHIA COLI :CONFIRMED ESBL PANTS PRESSER AUTOMATIC :Greater than 100,000 CFU/ML ---> RVW (NOTE) CONTACT ISOLATION IS REQUIRED FOR INPATIENTS WITH CONFIRMED ESBL PRODUCERS. ESBL PRODUCERS ARE LIKELY CLINICALLY RESISTANT TO THERAPY WITH PENICILLINS, CEPHALOSPORINS AND AZTREONAM. Fosfomycin is indicated for Urinary Tract Infections ONLY. Interpretive guidelines for Fosfomycin are those suggested by the call person in the package insert using breakpoints established for aerobes. REPORT STATUS: 08/07/2018 FINAL ORGANISM: ESCHERICHIA COLI SUSCEPTIBILITY ESCHERICHIA COLI :CONFIRMED ESBL PANTS PRESSER AUTOMATIC :Greater than 100,000 CFU/ML ANTIBIOTIC INTERPRETATION ELENA STATUS AMIKACIN SS <=2 F AMPICILLIN R >=32 F AMPICILLIN/SULB. R 16 F CEFAZOLIN R >=64 F CEFEPIME R 2 F CEFTRIAXONE R >=64 F CIPROFLOXACIN R >=4 F ERTAPENEM SS <=0.5 F GENTAMICIN SS <=1 F MEROPENEM SS <=0.25 F NITROFURANTOIN SS <=16 F PIPERACILLIN/ABDULAZIZ. R <=4 F TOBRAMYCIN SS <=1 F TRIMETHOPRIM/SULFA. R >=320 F ORGANISM: ESCHERICHIA COLI SUSCEPTIBILITY ESCHERICHIA COLI :CONFIRMED ESBL PANTS PRESSER AUTOMATIC :Greater than 100,000 CFU/ML METHOD TYPE GRADIENT STRIPF FOSFOMYCIN SS 1 F Performed By: #### UR #### [address] [address] Blood Cultures processed at: [facility] CBC,PLATELET,DIFFERENTIAL - CCL Collected: Status: F Source: [facility] 08/04/2018 12:42 [facility] REPOSITORY TYPE CODE TESTS RESULT OUT OF REFERENCE UNITS RANGE LAB WBC 3.99-11.19 K/uL WBC Count 8.21 LAB RBC 3.91-5.04 M/uL RBC Count 3.82 Low LAB HGB 11.4-15.2 g/dL Hemoglobin 11.3 Low LAB HCT 34.9-44.3 % Hematocrit 34.7 Low LAB MCV 79.6-97.7 fL Mean Cell 90.8 Volume LAB MCH 25.9-33.9 pg Mean Cell 29.6 Hgb LAB MCHC 31.4-35.9 g/dL Mean Cell 32.6 Hgb Conc LAB RDW 10.8-14.9 % RBC 13.1 Distribution LAB PLT 150-393 K/uL Platelet 319 Count LAB MPV 8.5-12.2 fL Mean 10.0 Platelet Volume LAB NRBC 0.0-0.2 /100 WBC NUCLEATED 0.0 RBC LAB DTYPE Electronic DIFFERENTIAL TYPE Differential LAB IGRE % IMMATURE 0.5 GRANS % LAB SEGS % NEUTROPHIL 72.5 SEGMENTED LAB LYM % LYMPHOCYTE 14.3 % LAB MON % MONOCYTE % 8.9 LAB EOS % *EOSINOPHIL 3.3 % LAB BASO % BASOPHIL % 0.5 LAB IGABS 0.00-0.08 K/uL IMMATURE 0.04 GRANS ABSOLUTE LAB SBANS 1.64-7.28 K/uL SEGS + 5.96 Bands,Absolute LAB ALYM 1.16-3.51 K/uL Abs Lymph 1.17 LAB AMONO 0.22-0.87 K/uL Abs Durham 0.73 LAB AEOS 0.00-0.42 K/uL Abs Eos 0.27 LAB ABASO 0.00-0.15 K/uL Abs Baso 0.04 Performed By: #### CBCDFC, PALB, CA, CHM7, HFP, IPB, MGO #### [facility] [address] [place] [phone] [facility] [address] [place] [address] PREALBUMIN Collected: 08/04/2018 Status: F Source: [facility] 12:42 AM [facility] REPOSITORY TYPE CODE TESTS RESULT OUT OF REFERENCE UNITS RANGE LAB PALB 17-34 mg/dL Prealbumin 22 Performed By: #### CBCDFC, PALB, CA, CHM7, HFP, IPB, MGO #### [facility] [address] [place] [id number] [place] [address] [address] [place] [address] CALCIUM Collected: 08/04/2018 Status: F Source: [facility] 12:42 [facility] REPOSITORY TYPE CODE TESTS RESULT OUT OF REFERENCE UNITS RANGE LAB CA 8.6-10.5 mg/dL Calcium 9.3 Performed By: #### CBCDFC, PALB, CA, CHM7, HFP, IPB, MGO #### [facility] [address] [place] [id number] [place] [address] [address] [place] [address] CHEM 7 Collected: 08/04/2018 Status: F Source: [facility] 12:42 [facility] REPOSITORY TYPE CODE TESTS RESULT OUT OF REFERENCE UNITS RANGE LAB BUN 7-22 mg/dL BUN 21 LAB NA 133-143 mmol/L Sodium 136 LAB K 3.5-5.0 mmol/L Potassium 4.6 LAB CL 98-108 mmol/L Chloride 100 LAB CO2 22-30 mmol/L Carbon Dioxide 26 LAB GLUC 70-99 mg/dL Glucose High 100 LAB CREA 0.50-1.20 mg/dL Creatinine 0.63 LAB GAP 7-17 mmol/L Anion Gap 15 LAB BC BUN/CREA Ratio 33 LAB OSMC 278-305 mOsm/kg Osmolality 289 (Calc) LAB GFR >60 mL/min/1.73 sqM Est GFR,non >60 Burkinan LAB GFRA >60 mL/min/1.73 sqM Est GFR, >60 Performed By: #### CBCDFC, PALB, CA, CHM7, HFP, IPB, MGO #### [facility] [address] [place] [phone] [place] [address] [address] [place] [address] HEPATIC FUNCTION Collected: 08/04/2018 Status: F Source: [facility] 12:42 AM [facility] REPOSITORY TYPE CODE TESTS RESULT OUT OF REFERENCE UNITS RANGE LAB ALB 3.5-5.0 g/dL Albumin 4.0 LAB BILD <0.3 mg/dL Bilirubin Direct 0.1 LAB BILT <1.5 mg/dL Bilirubin Total 0.5 LAB ALP 32-126 U/L Alkaline Phosphatase 62 LAB ALT 9-48 U/L ALT High 59 LAB AST 14-40 U/L AST High 56 LAB TP 6.4-8.3 g/dL Total Protein 6.8 Performed By: #### CBCDFC, PALB, CA, CHM7, HFP, IPB, MGO #### [facility] [address] [place] [address] [place] [address] INORGANIC PHOSPHATE Collected: 08/04/2018 Status: F Source: [facility] 12:42 AM [facility] REPOSITORY TYPE CODE TESTS RESULT OUT OF REFERENCE UNITS RANGE LAB IP 2.2-4.6 mg/dL Inorg Phosphate 4.5 Performed By: #### CBCDFC, PALB, CA, CHM7, HFP, IPB, MGO #### [facility] [address] [place] [address] [place] [address] MAGNESIUM Collected: 08/04/2018 Status: F Source: [facility] 12:42 AM [facility] REPOSITORY TYPE CODE TESTS RESULT OUT OF REFERENCE UNITS RANGE LAB MG 1.6-2.6 mg/dL Magnesium 2.2 Performed By: #### CBCDFC, PALB, CA, CHM7, HFP, IPB, MGO #### [facility] [address] [place] [address] [facility] [address] [place] [address] Observed: 08/03/2018 Status: F Source: [facility] TYPE AND CROSS 12:19 AM [facility] REPOSITORY ABO/RH(D): A POSITIVE ANTIBODY SCREEN: NEGATIVE Performed By: #### XM #### U [facility] [address] [place], [place] [id number] [place] [address] [address] [place], [place] [address] CBC,PLATELET,DIFFERENTIAL - CCL Collected: Status: F Source: [facility] 08/03/2018 12:03 [facility] REPOSITORY TYPE CODE TESTS RESULT OUT OF REFERENCE UNITS RANGE LAB WBC 3.99-11.19 K/uL WBC Count 9.16 LAB RBC 3.91-5.04 M/uL RBC Count 3.47 Low LAB HGB 11.4-15.2 g/dL Hemoglobin 10.5 Low LAB HCT 34.9-44.3 % Hematocrit 31.9 Low LAB MCV 79.6-97.7 fL Mean Cell 91.9 Volume LAB MCH 25.9-33.9 pg Mean Cell 30.3 Hgb LAB MCHC 31.4-35.9 g/dL Mean Cell 32.9 Hgb Conc LAB RDW 10.8-14.9 % RBC 13.2 Distribution LAB PLT 150-393 K/uL Platelet 269 Count LAB MPV 8.5-12.2 fL Mean 9.7 Platelet Volume LAB NRBC 0.0-0.2 /100 WBC NUCLEATED 0.0 RBC LAB DTYPE Electronic DIFFERENTIAL TYPE Differential LAB IGRE % IMMATURE 0.3 GRANS % LAB SEGS % NEUTROPHIL 75.1 SEGMENTED LAB LYM % LYMPHOCYTE 11.9 % LAB MON % MONOCYTE % 9.7 LAB EOS % *EOSINOPHIL 2.6 % LAB BASO % BASOPHIL % 0.4 LAB IGABS 0.00-0.08 K/uL IMMATURE <0.04 GRANS ABSOLUTE LAB SBANS 1.64-7.28 K/uL SEGS + 6.87 Bands,Absolute LAB ALYM 1.16-3.51 K/uL Abs Lymph 1.09 Low LAB AMONO 0.22-0.87 K/uL Abs Durham 0.89 High LAB AEOS 0.00-0.42 K/uL Abs Eos 0.24 LAB ABASO 0.00-0.15 K/uL Abs Baso 0.04 Performed By: #### CBCDFC, CHM6, PTPTT #### [facility] [address] [address] [facility] [address] [address] CHEM 6 Collected: 08/03/2018 Status: F Source: [facility] 12:03 AM [facility] REPOSITORY TYPE CODE TESTS RESULT OUT OF REFERENCE UNITS RANGE LAB BUN 7-22 mg/dL BUN 18 LAB NA 133-143 mmol/L Sodium 134 LAB K 3.5-5.0 mmol/L Potassium 4.1 LAB CL 98-108 mmol/L Chloride 99 LAB CO2 22-30 mmol/L Carbon Dioxide 24 LAB CREA 0.50-1.20 mg/dL Creatinine 0.72 LAB GAP 7-17 mmol/L Anion Gap 15 LAB BC BUN/CREA Ratio 25 LAB GFR >60 mL/min/1.73 sqM Est GFR,non >60 Burkinan LAB GFRA >60 mL/min/1.73 sqM Est GFR, >60 Performed By: #### MARCO, CHM6, PTPTT #### [place] [address] PT*PTT Collected: 08/03/2018 Status: F Source: [facility] 12:03 AM [facility] REPOSITORY TYPE CODE TESTS RESULT OUT OF RANGE REFERENCE UNITS LAB PT 11.9-14.2 sec PT 13.5 LAB INR 0.9-1.1 INR 1.0 LAB PTT 24.0-34.3 sec PTT 29.2 Performed By: #### CBCDFC, CHM6, PTPTT #### [place] [address] XR SPINE CERVICAL 2 Observed: 08/02/2018 Status: F Source: [facility] 6:45 PM [facility] REPOSITORY EXAM: XR SPINE CERVICAL 2 VIEWS VIEWS , 08/02/2018 18:25 PM COMPARISON: July 31, 2018 CLINICAL INDICATIONS: post halo adjustment RELEVANT CLINICAL HISTORY: FINDINGS: 2 images obtained Stable alignment of the cervical spine with halo in place. Fractures of C2 and C6 do not appear significantly changed radiographically. The degree of displacement involving the posterior arch of C1 measures approximately 1 mm, previously 4 mm. Prevertebral soft tissue swelling is unchanged. IMPRESSION: The degree of displacement involving the posterior arch of C1 appears improved. Otherwise stable appearance of the cervical spine. 25-OH VITAMIN D Collected: 08/02/2018 Status: F Source: [facility] TOTAL 7:41 AM [facility] REPOSITORY TYPE CODE TESTS RESULT OUT OF REFERENCE UNITS RANGE LAB D25OH 30.0-100.0 ng/mL Low 25-OH Vitamin 15.0 D Total Result Comment: <10 Deficiency 10-29 Insufficiency 30-100 Optimal Level >100 Possible Toxicity Performed By: #### [id number] #### [facility] [address] [place] [phone] [place] [address] [address] [place], [place] [address] CBC,PLATELET,DIFFERENTIAL - CCL Collected: Status: F Source: [facility] 08/02/2018 12:04 [facility] REPOSITORY TYPE CODE TESTS RESULT OUT OF REFERENCE UNITS RANGE LAB WBC 3.99-11.19 K/uL WBC Count 6.65 LAB RBC 3.91-5.04 M/uL RBC Count 3.43 Low LAB HGB 11.4-15.2 g/dL Hemoglobin 10.4 Low LAB HCT 34.9-44.3 % Hematocrit 31.6 Low LAB MCV 79.6-97.7 fL Mean Cell 92.1 Volume LAB MCH 25.9-33.9 pg Mean Cell 30.3 Hgb LAB MCHC 31.4-35.9 g/dL Mean Cell 32.9 Hgb Conc LAB RDW 10.8-14.9 % RBC 13.2 Distribution LAB PLT 150-393 K/uL Platelet 270 Count LAB MPV 8.5-12.2 fL Mean 10.0 Platelet Volume LAB NRBC 0.0-0.2 /100 WBC NUCLEATED 0.0 RBC LAB DTYPE Electronic DIFFERENTIAL TYPE Differential LAB IGRE % IMMATURE 0.6 GRANS % LAB SEGS % NEUTROPHIL 61.8 SEGMENTED LAB LYM % LYMPHOCYTE 22.9 % LAB MON % MONOCYTE % 10.5 LAB EOS % *EOSINOPHIL 3.3 % LAB BASO % BASOPHIL % 0.9 LAB IGABS 0.00-0.08 K/uL IMMATURE 0.04 GRANS ABSOLUTE LAB SBANS 1.64-7.28 K/uL SEGS + 4.11 Bands,Absolute LAB ALYM 1.16-3.51 K/uL Abs Lymph 1.52 LAB AMONO 0.22-0.87 K/uL Abs Durham 0.70 LAB AEOS 0.00-0.42 K/uL Abs Eos 0.22 LAB ABASO 0.00-0.15 K/uL Abs Baso 0.06 Performed By: #### CBCDFC, CA, CHM6, IPB, MGO, ICA #### [facility] [address] [place] [address] [place] [address] CALCIUM Collected: 08/02/2018 Status: F Source: [facility] 12:04 [facility] REPOSITORY TYPE CODE TESTS RESULT OUT OF REFERENCE UNITS RANGE LAB CA 8.6-10.5 mg/dL Calcium 8.7 Performed By: #### CBCDFC, CA, CHM6, IPB, MGO, ICA #### [facility] [address] [place] [address] [address] [place] [address] CHEM 6 Collected: 08/02/2018 Status: F Source: [facility] 12:04 [facility] REPOSITORY TYPE CODE TESTS RESULT OUT OF REFERENCE UNITS RANGE LAB BUN 7-22 mg/dL BUN 18 LAB NA 133-143 mmol/L Sodium 134 LAB K 3.5-5.0 mmol/L Potassium 4.3 LAB CL 98-108 mmol/L Chloride 104 LAB CO2 22-30 mmol/L Carbon Dioxide 23 LAB CREA 0.50-1.20 mg/dL Creatinine 0.60 LAB GAP 7-17 mmol/L Anion Gap 11 LAB BC BUN/CREA Ratio 30 LAB GFR >60 mL/min/1.73 sqM Est GFR,non >60 Burkinan LAB GFRA >60 mL/min/1.73 sqM Est GFR, >60 Performed By: #### CBCDFC, CA, CHM6, IPB, MGO, ICA #### [facility] [address] [place] [address] [address] [place] [address] INORGANIC PHOSPHATE Collected: 08/02/2018 Status: F Source: [facility] 12:04 AM [facility] REPOSITORY TYPE CODE TESTS RESULT OUT OF REFERENCE UNITS RANGE LAB IP 2.2-4.6 mg/dL Inorg Phosphate 4.0 Performed By: #### CBCDFC, CA, CHM6, IPB, MGO, ICA #### [facility] [address] [place] [id number] [place] [address] [address] [place] [address] MAGNESIUM Collected: 08/02/2018 Status: F Source: [facility] 12:04 AM [facility] REPOSITORY TYPE CODE TESTS RESULT OUT OF REFERENCE UNITS RANGE LAB MG 1.6-2.6 mg/dL Magnesium 2.1 Performed By: #### CBCDFC, CA, CHM6, IPB, MGO, ICA #### [facility] [address] [place] [address] IONIZED CALCIUM Collected: 08/02/2018 Status: F Source: [facility] 12:04 AM [facility] REPOSITORY TYPE CODE TESTS RESULT OUT OF REFERENCE UNITS RANGE LAB ICA 4.60-5.30 mg/dL Low Ionized 4.44 Calcium Performed By: #### CBCDFC, CA, CHM6, IPB, MGO, ICA #### [facility] [address] [place] [address] [address] [place] [address] XR SPINE CERVICAL 2 Observed: 08/01/2018 Status: F Source: [facility] 6:27 AM [facility] REPOSITORY EXAM: XR SPINE CERVICAL 2 VIEWS, 07/31/2018 20:44 PM COMPARISON: Compared to prior radiographs dated July 30, [address] dated July 27, 2018. CLINICAL INDICATIONS: s/p Halo adjustment FINDINGS: 2 images obtained. Cervical Vertebral: Comminuted fracture involving the C2 vertebral body redemonstrated. A small fragment from the anterior inferior corner is displaced approximately 3 mm, stable in appearance. The component involving the posterior aspect of the vertebral body demonstrates no significant displacement. The overall alignment appears stable. Mildly displaced fracture involving the posterior arch of C1 grossly stable with displacement measuring approximately 4 mm. There is also a fracture involving the spinous process of C6 which is grossly stable. No spondylolisthesis evident. Spinal canal appears within normal limits. Disc: Stable degenerative disc changes. Joint: Facet joints are anatomically aligned. Soft Tissue: Prevertebral soft tissues are unremarkable. IMPRESSION: Stable appearance fractures involving C1, C2 and C6. ,PLATELET,DIFFERENTIAL - CCL Collected: Status: F Source: [facility] 08/01/2018 12:01 [facility] REPOSITORY TYPE CODE TESTS RESULT OUT OF REFERENCE UNITS RANGE LAB WBC 3.99-11.19 K/uL WBC Count 6.92 LAB RBC 3.91-5.04 M/uL RBC Count 3.44 Low LAB HGB 11.4-15.2 g/dL Hemoglobin 10.6 Low LAB HCT 34.9-44.3 % Hematocrit 31.3 Low LAB MCV 79.6-97.7 fL Mean Cell 91.0 Volume LAB MCH 25.9-33.9 pg Mean Cell 30.8 Hgb LAB MCHC 31.4-35.9 g/dL Mean Cell 33.9 Hgb Conc LAB RDW 10.8-14.9 % RBC 12.9 Distribution LAB PLT 150-393 K/uL Platelet 270 Count LAB MPV 8.5-12.2 fL Mean 10.4 Platelet Volume LAB NRBC 0.0-0.2 /100 WBC NUCLEATED 0.0 RBC LAB DTYPE Electronic DIFFERENTIAL TYPE Differential LAB IGRE % IMMATURE 0.6 GRANS % LAB SEGS % NEUTROPHIL 66.7 SEGMENTED LAB LYM % LYMPHOCYTE 20.2 % LAB MON % MONOCYTE % 9.7 LAB EOS % *EOSINOPHIL 2.2 % LAB BASO % BASOPHIL % 0.6 LAB IGABS 0.00-0.08 K/uL IMMATURE 0.04 GRANS ABSOLUTE LAB SBANS 1.64-7.28 K/uL SEGS + 4.62 Bands,Absolute LAB ALYM 1.16-3.51 K/uL Abs Lymph 1.40 LAB AMONO 0.22-0.87 K/uL Abs Durham 0.67 LAB AEOS 0.00-0.42 K/uL Abs Eos 0.15 LAB ABASO 0.00-0.15 K/uL Abs Baso 0.04 Performed By: #### CBCDFC, ICA, CA, CHM6, IPB, MGO #### [facility] [address] [place] [address] [place] [address] IONIZED CALCIUM Collected: 08/01/2018 Status: F Source: [facility] 12:01 AM [facility] REPOSITORY TYPE CODE TESTS RESULT OUT OF REFERENCE UNITS RANGE LAB ICA 4.60-5.30 mg/dL Low Ionized 4.46 Calcium Performed By: #### CBCDFC, ICA, CA, CHM6, IPB, MGO #### [facility] [address] [place] [address] [place] [id number] CALCIUM Collected: 08/01/2018 Status: F Source: [facility] 12:01 [facility] REPOSITORY TYPE CODE TESTS RESULT OUT OF REFERENCE UNITS RANGE LAB CA 8.6-10.5 mg/dL Calcium 8.9 Performed By: #### CBCDFC, ICA, CA, CHM6, IPB, MGO #### [facility] [address] [place] [address] [place] [address] CHEM 6 Collected: 08/01/2018 Status: F Source: [facility] 12:01 [facility] REPOSITORY TYPE CODE TESTS RESULT OUT OF REFERENCE UNITS RANGE LAB BUN 7-22 mg/dL BUN 21 LAB NA 133-143 mmol/L Sodium 135 LAB K 3.5-5.0 mmol/L Potassium 3.5 LAB CL 98-108 mmol/L Chloride 101 LAB CO2 22-30 mmol/L Carbon Dioxide 24 LAB CREA 0.50-1.20 mg/dL Creatinine 0.64 LAB GAP 7-17 mmol/L Anion Gap 14 LAB BC BUN/CREA Ratio 33 LAB GFR >60 mL/min/1.73 sqM Est GFR,non >60 Burkinan LAB GFRA >60 mL/min/1.73 sqM Est GFR, >60 Performed By: #### CBCDFC, ICA, CA, CHM6, IPB, MGO #### [facility] [address] [place] [address] [place] [address] INORGANIC PHOSPHATE Collected: 08/01/2018 Status: F Source: [facility] 12:01 AM [facility] REPOSITORY TYPE CODE TESTS RESULT OUT OF REFERENCE UNITS RANGE LAB IP 2.2-4.6 mg/dL Inorg Phosphate 3.5 Performed By: #### CBCDFC, ICA, CA, CHM6, IPB, MGO #### [facility] [address] [place] [address] [place] [id number] MAGNESIUM Collected: 08/01/2018 Status: F Source: [facility] 12:01 AM [facility] REPOSITORY TYPE CODE TESTS RESULT OUT OF REFERENCE UNITS RANGE LAB MG 1.6-2.6 mg/dL Magnesium 2.0 Performed By: #### CBCDFC, ICA, CA, CHM6, IPB, MGO #### [facility] [address] [place] [address] [address] [place] [address] POTASSIUM Collected: 07/31/2018 Status: F Source: [facility] 2:57 PM [facility] REPOSITORY TYPE CODE TESTS RESULT OUT OF REFERENCE UNITS RANGE LAB K 3.5-5.0 mmol/L Potassium 4.3 Performed By: #### KKO, MGO #### [facility] [address] [place] [address] [place] [address] MAGNESIUM Collected: 07/31/2018 Status: F Source: [facility] 2:57 PM [facility] REPOSITORY TYPE CODE TESTS RESULT OUT OF REFERENCE UNITS RANGE LAB MG 1.6-2.6 mg/dL Magnesium 2.2 Performed By: #### KKO, MGO #### [facility] [address] [place] [address] [place] [address] Observed: 07/31/2018 Status: F Source: [facility] TYPE AND CROSS 12:05 AM [facility] REPOSITORY ABO/RH(D): A POSITIVE ANTIBODY SCREEN: NEGATIVE Performed By: #### XM #### [facility] [address] [place] [address] [facility] [address] [place], [place] [address] CBC,PLATELET,DIFFERENTIAL - CCL Collected: Status: F Source: [facility] 07/31/2018 12:04 [facility] REPOSITORY TYPE CODE TESTS RESULT OUT OF REFERENCE UNITS RANGE LAB WBC 3.99-11.19 K/uL WBC Count 7.04 LAB RBC 3.91-5.04 M/uL RBC Count 3.49 Low LAB HGB 11.4-15.2 g/dL Hemoglobin 10.7 Low LAB HCT 34.9-44.3 % Hematocrit 31.8 Low LAB MCV 79.6-97.7 fL Mean Cell 91.1 Volume LAB MCH 25.9-33.9 pg Mean Cell 30.7 Hgb LAB MCHC 31.4-35.9 g/dL Mean Cell 33.6 Hgb Conc LAB RDW 10.8-14.9 % RBC 12.7 Distribution LAB PLT 150-393 K/uL Platelet 236 Count LAB MPV 8.5-12.2 fL Mean 10.5 Platelet Volume LAB NRBC 0.0-0.2 /100 WBC NUCLEATED 0.0 RBC LAB DTYPE Electronic DIFFERENTIAL TYPE Differential LAB IGRE % IMMATURE 0.3 GRANS % LAB SEGS % NEUTROPHIL 78.1 SEGMENTED LAB LYM % LYMPHOCYTE 13.1 % LAB MON % MONOCYTE % 7.0 LAB EOS % *EOSINOPHIL 1.1 % LAB BASO % BASOPHIL % 0.4 LAB IGABS 0.00-0.08 K/uL IMMATURE <0.04 GRANS ABSOLUTE LAB SBANS 1.64-7.28 K/uL SEGS + 5.50 Bands,Absolute LAB ALYM 1.16-3.51 K/uL Abs Lymph 0.92 Low LAB AMONO 0.22-0.87 K/uL Abs Durham 0.49 LAB AEOS 0.00-0.42 K/uL Abs Eos 0.08 LAB ABASO 0.00-0.15 K/uL Abs Baso <0.04 Performed By: #### CBCDFC, ICA, PTPTT, CA, CHM6, IPB, MGO #### [facility] [address] [place], [place] [id number] [facility] [address] [place], [place] [address] IONIZED CALCIUM Collected: 07/31/2018 Status: F Source: [facility] 12:04 [facility] REPOSITORY TYPE CODE TESTS RESULT OUT OF REFERENCE UNITS RANGE LAB ICA 4.60-5.30 mg/dL Low Ionized 4.25 Calcium Performed By: #### CBCDFC, ICA, PTPTT, CA, CHM6, IPB, MGO #### [facility] [address] [place] [id number] [place] [address] [place] [id number] PT*PTT Collected: 07/31/2018 Status: F Source: [facility] 12:04 AM [facility] REPOSITORY TYPE CODE TESTS RESULT OUT OF RANGE REFERENCE UNITS LAB PT 11.9-14.2 sec PT 13.5 LAB INR 0.9-1.1 INR 1.0 LAB PTT 24.0-34.3 sec PTT 26.3 Performed By: #### CBCDFC, ICA, PTPTT, CA, CHM6, IPB, MGO #### [facility] [address] [place] [address] [place] [id number] CALCIUM Collected: 07/31/2018 Status: F Source: [facility] 12:04 [facility] REPOSITORY TYPE CODE TESTS RESULT OUT OF REFERENCE UNITS RANGE LAB CA 8.6-10.5 mg/dL Calcium 8.7 Performed By: #### CBCDFC, ICA, PTPTT, CA, CHM6, IPB, MGO #### [facility] [address] [place] [address] [id number] CHEM 6 Collected: 07/31/2018 Status: F Source: [facility] 12:04 [facility] REPOSITORY TYPE CODE TESTS RESULT OUT OF REFERENCE UNITS RANGE LAB BUN 7-22 mg/dL BUN 17 LAB NA 133-143 mmol/L Sodium 135 LAB K 3.5-5.0 mmol/L Low Potassium 3.3 LAB CL 98-108 mmol/L Chloride 100 LAB CO2 22-30 mmol/L Carbon Dioxide 25 LAB CREA 0.50-1.20 mg/dL Creatinine 0.68 LAB GAP 7-17 mmol/L Anion Gap 13 LAB BC BUN/CREA Ratio 25 LAB GFR >60 mL/min/1.73 sqM Est GFR,non >60 [place] LAB GFRA >60 mL/min/1.73 sqM Est GFR, >60 Performed By: #### CBCDFC, ICA, PTPTT, CA, CHM6, IPB, MGO #### [facility] [address] [address] INORGANIC PHOSPHATE Collected: 07/31/2018 Status: F Source: [facility] 12:04 AM [facility] REPOSITORY TYPE CODE TESTS RESULT OUT OF REFERENCE UNITS RANGE LAB IP 2.2-4.6 mg/dL Inorg Phosphate 3.1 Performed By: #### CBCDFC, ICA, PTPTT, CA, CHM6, IPB, MGO #### [facility] [address] [address] MAGNESIUM Collected: 07/31/2018 Status: F Source: [facility] 12:04 AM [facility] REPOSITORY TYPE CODE TESTS RESULT OUT OF REFERENCE UNITS RANGE LAB MG 1.6-2.6 mg/dL Magnesium 2.0 Performed By: #### CBCDFC, ICA, PTPTT, CA, CHM6, IPB, MGO #### [place] [address] XR SPINE CERVICAL 2 Observed: 07/30/2018 Status: F Source: [facility] VIEWS 5:08 PM [facility] REPOSITORY EXAM: XR SPINE CERVICAL 2 VIEWS, 07/30/2018 16:46 PM COMPARISON: Cervical spine radiographs 07/28/2018 CLINICAL INDICATIONS: upright ap and lateral, s/p halo RELEVANT CLINICAL HISTORY: FINDINGS: 2 images obtained Cervical Vertebral: Seven cervical vertebral bodies identified with cervical spine straightening and improved alignment of the C2 fracture. Stable deformity of the posterior elements of C1. Disc: Disc spaces are stable with multilevel degenerative disc disease. Joint: Facet joints appear anatomically aligned. Soft Tissue: Prevertebral soft tissues are unremarkable. IMPRESSION: cervical spine straightening and improved alignment of the C2 fracture. Stable deformity of the posterior elements of C1. ,PLATELET,DIFFERENTIAL - CCL Collected: Status: F Source: [facility] 07/30/2018 12:00 [facility] REPOSITORY TYPE CODE TESTS RESULT OUT OF REFERENCE UNITS RANGE LAB WBC 3.99-11.19 K/uL WBC Count 6.73 LAB RBC 3.91-5.04 M/uL RBC Count 3.25 Low LAB HGB 11.4-15.2 g/dL Hemoglobin 10.0 Low LAB HCT 34.9-44.3 % Hematocrit 29.9 Low LAB MCV 79.6-97.7 fL Mean Cell 92.0 Volume LAB MCH 25.9-33.9 pg Mean Cell 30.8 Hgb LAB MCHC 31.4-35.9 g/dL Mean Cell 33.4 Hgb Conc LAB RDW 10.8-14.9 % RBC 12.8 Distribution LAB PLT 150-393 K/uL Platelet 182 Count LAB MPV 8.5-12.2 fL Mean NOT Platelet Volume MEASURED LAB NRBC 0.0-0.2 /100 WBC NUCLEATED 0.0 RBC LAB DTYPE Electronic DIFFERENTIAL TYPE Differential LAB IGRE % IMMATURE 0.3 GRANS % LAB SEGS % NEUTROPHIL 71.7 SEGMENTED LAB LYM % LYMPHOCYTE 18.3 % LAB MON % MONOCYTE % 8.5 LAB EOS % *EOSINOPHIL 0.9 % LAB BASO % BASOPHIL % 0.3 LAB IGABS 0.00-0.08 K/uL IMMATURE <0.04 GRANS ABSOLUTE LAB SBANS 1.64-7.28 K/uL SEGS + 4.83 Bands,Absolute LAB ALYM 1.16-3.51 K/uL Abs Lymph 1.23 LAB AMONO 0.22-0.87 K/uL Abs Durham 0.57 LAB AEOS 0.00-0.42 K/uL Abs Eos 0.06 LAB ABASO 0.00-0.15 K/uL Abs Baso <0.04 Performed By: #### CBCDFC, ICA, CA, CHM6, IPB, MGO #### [facility] [address] [place] [address] IONIZED CALCIUM Collected: 07/30/2018 Status: F Source: [facility] 12:00 [facility] REPOSITORY TYPE CODE TESTS RESULT OUT OF REFERENCE UNITS RANGE LAB ICA 4.60-5.30 mg/dL Low Ionized 4.19 Calcium Performed By: #### CBCDFC, ICA, CA, CHM6, IPB, MGO #### [facility] [address] [place] [address] [place] [address] CALCIUM Collected: 07/30/2018 Status: F Source: [facility] 12:00 [facility] REPOSITORY TYPE CODE TESTS RESULT OUT OF REFERENCE UNITS RANGE LAB CA 8.6-10.5 mg/dL Calcium 8.7 Performed By: #### CBCDFC, ICA, CA, CHM6, IPB, MGO #### [facility] [address] [place] [address] [address] [place] [address] CHEM 6 Collected: 07/30/2018 Status: F Source: [facility] 12:00 [facility] REPOSITORY TYPE CODE TESTS RESULT OUT OF REFERENCE UNITS RANGE LAB BUN 7-22 mg/dL BUN 12 LAB NA 133-143 mmol/L Sodium 136 LAB K 3.5-5.0 mmol/L Potassium 3.6 LAB CL 98-108 mmol/L Chloride 103 LAB CO2 22-30 mmol/L Carbon Dioxide 25 LAB CREA 0.50-1.20 mg/dL Creatinine 0.57 LAB GAP 7-17 mmol/L Anion Gap 12 LAB BC BUN/CREA Ratio 21 LAB GFR >60 mL/min/1.73 sqM Est GFR,non >60 Burkinan LAB GFRA >60 mL/min/1.73 sqM Est GFR, >60 Performed By: #### CBCDFC, ICA, CA, CHM6, IPB, MGO #### [facility] [address] [place] [address] [address] [place] [address] INORGANIC PHOSPHATE Collected: 07/30/2018 Status: F Source: [facility] 12:00 [facility] REPOSITORY TYPE CODE TESTS RESULT OUT OF REFERENCE UNITS RANGE LAB IP 2.2-4.6 mg/dL Inorg Phosphate 2.4 Performed By: #### CBCDFC, ICA, CA, CHM6, IPB, MGO #### [facility] [address] [place] [address] [facility] [address] [place], [place] [address] MAGNESIUM Collected: 07/30/2018 Status: F Source: [facility] 12:00 AM [facility] REPOSITORY TYPE CODE TESTS RESULT OUT OF REFERENCE UNITS RANGE LAB MG 1.6-2.6 mg/dL Magnesium 1.8 Performed By: #### CBCDFC, ICA, CA, CHM6, IPB, MGO #### [facility] [address] [place] [address] [facility] [address] [place] [address] *POC GLUCOSE BATTERY Collected: 07/29/2018 Status: F Source: [facility] 12:06 PM [facility] REPOSITORY TYPE CODE TESTS RESULT OUT OF REFERENCE UNITS RANGE LAB GLUP 70-99 mg/dL High Glucose (poc 116 device) Result Comment: No BRAVE per RN: PATIENT TYPE LAB PCSTYP *POC Capillary SAMPLE TYPE Blood *POC GLUCOSE BATTERY Collected: 07/29/2018 Status: F Source: [facility] 5:20 AM [facility] REPOSITORY TYPE CODE TESTS RESULT OUT OF REFERENCE UNITS RANGE LAB GLUP 70-99 mg/dL High Glucose (poc 128 device) Result Comment: No BRAVE per RN: PATIENT TYPE LAB PCSTYP *POC Capillary SAMPLE TYPE Blood CBC,PLATELET,DIFFERENTIAL - CCL Collected: Status: F Source: [facility] 07/29/2018 12:01 [facility] REPOSITORY TYPE CODE TESTS RESULT OUT OF REFERENCE UNITS RANGE LAB WBC 3.99-11.19 K/uL WBC Count 6.41 LAB RBC 3.91-5.04 M/uL RBC Count 3.05 Low LAB HGB 11.4-15.2 g/dL Hemoglobin 9.5 Low LAB HCT 34.9-44.3 % Hematocrit 28.9 Low LAB MCV 79.6-97.7 fL Mean Cell 94.8 Volume LAB MCH 25.9-33.9 pg Mean Cell 31.1 Hgb LAB MCHC 31.4-35.9 g/dL Mean Cell 32.9 Hgb Conc LAB RDW 10.8-14.9 % RBC 13.4 Distribution LAB PLT 150-393 K/uL Platelet 174 Count LAB MPV 8.5-12.2 fL Mean 10.8 Platelet Volume LAB NRBC 0.0-0.2 /100 WBC NUCLEATED 0.0 RBC LAB DTYPE Electronic DIFFERENTIAL TYPE Differential LAB IGRE % IMMATURE 0.3 GRANS % LAB SEGS % NEUTROPHIL 71.9 SEGMENTED LAB LYM % LYMPHOCYTE 17.3 % LAB MON % MONOCYTE % 9.4 LAB EOS % *EOSINOPHIL 0.8 % LAB BASO % BASOPHIL % 0.3 LAB IGABS 0.00-0.08 K/uL IMMATURE <0.04 GRANS ABSOLUTE LAB SBANS 1.64-7.28 K/uL SEGS + 4.61 Bands,Absolute LAB ALYM 1.16-3.51 K/uL Abs Lymph 1.11 Low LAB AMONO 0.22-0.87 K/uL Abs Durham 0.60 LAB AEOS 0.00-0.42 K/uL Abs Eos 0.05 LAB ABASO 0.00-0.15 K/uL Abs Baso <0.04 Performed By: #### CBCDFC, ICA, CA, CHM6, IPB, MGO #### [address] [place] [address] IONIZED CALCIUM Collected: 07/29/2018 Status: F Source: [facility] 12:01 [facility] REPOSITORY TYPE CODE TESTS RESULT OUT OF REFERENCE UNITS RANGE LAB ICA 4.60-5.30 mg/dL Low Ionized 4.14 Calcium Performed By: #### CBCDFC, ICA, CA, CHM6, IPB, MGO #### [facility] [address] [address] CALCIUM Collected: 07/29/2018 Status: F Source: [facility] 12:01 [facility] REPOSITORY TYPE CODE TESTS RESULT OUT OF REFERENCE UNITS RANGE LAB CA 8.6-10.5 mg/dL Calcium 8.6 Performed By: #### CBCDFC, ICA, CA, CHM6, IPB, MGO #### [facility] [address] [place] [address] [facility] [address] [place] [address] CHEM 6 Collected: 07/29/2018 Status: F Source: [facility] 12:01 AM [facility] REPOSITORY TYPE CODE TESTS RESULT OUT OF REFERENCE UNITS RANGE LAB BUN 7-22 mg/dL BUN 19 LAB NA 133-143 mmol/L Sodium 137 LAB K 3.5-5.0 mmol/L Potassium 4.0 LAB CL 98-108 mmol/L Chloride 105 LAB CO2 22-30 mmol/L Carbon Dioxide 25 LAB CREA 0.50-1.20 mg/dL Creatinine 0.61 LAB GAP 7-17 mmol/L Anion Gap 11 LAB BC BUN/CREA Ratio 31 LAB GFR >60 mL/min/1.73 sqM Est GFR,non >60 Burkinan LAB GFRA >60 mL/min/1.73 sqM Est GFR, >60 Performed By: #### CBCDFC, ICA, CA, CHM6, IPB, MGO #### [facility] [address] [place] [address] [place] [address] INORGANIC PHOSPHATE Collected: 07/29/2018 Status: F Source: [facility] 12:01 AM [facility] REPOSITORY TYPE CODE TESTS RESULT OUT OF REFERENCE UNITS RANGE LAB IP 2.2-4.6 mg/dL Inorg Phosphate 2.4 Performed By: #### CBCDFC, ICA, CA, CHM6, IPB, MGO #### [facility] [address] [place] [address] [facility] [address] [place] [address] MAGNESIUM Collected: 07/29/2018 Status: F Source: [facility] 12:01 AM [facility] REPOSITORY TYPE CODE TESTS RESULT OUT OF REFERENCE UNITS RANGE LAB MG 1.6-2.6 mg/dL Magnesium 2.0 Performed By: #### CBCDFC, ICA, CA, CHM6, IPB, MGO #### [facility] [address] [place], [place] [id number] [facility] [address] [place] [address] *POC GLUCOSE BATTERY Collected: 07/28/2018 Status: F Source: [facility] 11:40 PM [facility] REPOSITORY TYPE CODE TESTS RESULT OUT OF REFERENCE UNITS RANGE LAB GLUP 70-99 mg/dL High Glucose (poc 198 device) Result Comment: No BRAVE per RN: PATIENT TYPE LAB PCSTYP *POC Capillary SAMPLE TYPE Blood *POC GLUCOSE BATTERY Collected: 07/28/2018 Status: F Source: [facility] 6:37 PM [facility] REPOSITORY TYPE CODE TESTS RESULT OUT OF REFERENCE UNITS RANGE LAB GLUP 70-99 mg/dL High Glucose (poc 140 device) Result Comment: No BRAVE per RN: PATIENT TYPE LAB PCSTYP *POC Capillary SAMPLE TYPE Blood *POC GLUCOSE BATTERY Collected: 07/28/2018 Status: F Source: [facility] 2:05 PM [facility] REPOSITORY TYPE CODE TESTS RESULT OUT OF REFERENCE UNITS RANGE LAB GLUP 70-99 mg/dL High Glucose (poc 148 device) Result Comment: No BRAVE per RN: PATIENT TYPE LAB PCSTYP *POC Capillary SAMPLE TYPE Blood MRI SPINE CERVICAL Observed: 07/28/2018 Status: F Source: [facility] WITHOUT CONTRAST 11:58 AM [facility] REPOSITORY EXAM: MRI SPINE CERVICAL WITHOUT CONTRAST, 07/28/2018 00:55 AM COMPARISON: CT cervical spine from outside facility performed 07/27/2018 was reviewed in [facility]. CLINICAL INDICATIONS: 67 years Female Known C1 and C2 fractures,; TECHNIQUE: A series of sagittal and axial multisequence images of the cervical spine were obtained without intravenous contrast using standard protocol. Study was performed at 1.5 Rashmi. FINDINGS: The fractures of the anterior and posterior arch of C1 as well as the fractures extending through the C2 vertebral body anteriorly and posteriorly and the spinous process of C6 are noted and better delineated on the recent CT scan. There is significant edema within the prevertebral soft tissues. The left lateral mass of C1 is slightly positioned asymmetrically posteriorly upon C2 (sagittal image 4 of T1, T2, and STIR sequences). There is small amount of fluid within the C1-C2 lateral mass articulations. There is edema within the posterior paraspinal soft tissues, with no definite evidence of posterior ligamentous complex injury. Edema within the left C3 facet (sagittal STIR image 4) is nonspecific. Multilevel disc desiccation/degeneration, with posterior disc osteophyte complex at level C4-C5 resulting in mild cervical spinal canal narrowing. No significant spinal canal narrowing. No evidence of intrathecal hemorrhage or epidural hematoma. There is multilevel facet and uncovertebral hypertrophy, with no levels of significant neural foraminal compromise. Visualized spinal cord is within normal limits in caliber and signal. Craniocervical junction appears preserved.. IMPRESSION: Fractures involving the anterior and posterior arch of C1, the C2 vertebral body, and C6 spinous processes are noted and better delineated on the recent CT scan. Slight asymmetrically posterior location of the right C1 lateral mass in relation to the articular surface with C2, which could represent slight rotational subluxation. Edema within the left C3 facet is nonspecific and could represent area of marrow contusion. Extensive edema within the prevertebral and posterior paraspinal soft tissues. Disruption of the anterior longitudinal ligament. No convincing evidence of posterior ligamentous complex injury. I personally viewed and interpreted these images and I have reviewed and approved this report. SPINE CERVICAL 2 Observed: 07/28/2018 Status: F Source: [facility] 10:33 AM [facility] REPOSITORY EXAM: XR SPINE CERVICAL 3 VIEWS , 07/28/2018 09:54 AM COMPARISON: Same day radiographs CLINICAL INDICATIONS: upright AP, and open mouth RELEVANT CLINICAL HISTORY: FINDINGS: 5 images obtained including upright lateral, upright frontal, and attempted odontoid views which are suboptimal. Deformity of the posterior arch of C1 is noted. There is a fracture involving the posterior aspect of the base of the body of C2 with anterolisthesis with respect to C3, measuring 3 mm. The remainder of the cervical spine is stable. Prevertebral soft tissues are edematous. IMPRESSION: Stable anterolisthesis of C2 on C3 with a posterior basilar fracture. Stable deformity of the posterior arch of C1. SPINE CERVICAL 4 Observed: 07/28/2018 Status: F Source: [facility] 5:55 AM [facility] REPOSITORY EXAM: XR SPINE CERVICAL 3 VIEWS , 07/28/2018 04:57 AM COMPARISON: No prior studies available for comparison. CLINICAL INDICATIONS: Trauma. Please obtain AP, Lateral, and open-mouth odontoid view in c-collar RELEVANT CLINICAL HISTORY: FINDINGS: 3 images obtained including supine lateral, AP, and odontoid view. The prevertebral soft tissues are edematous. There is deformity of the posterior arch of C1. The C2 vertebral body appears minimally anteriorly subluxed with respect to C2 although this could be related to some rotation. There is an equivocal lucency through the spinous process although there is an artifact overlying this area. The lateral masses appear symmetric on the odontoid view. Degenerative disc disease noted at the L4-5 and C5-6 level and minimally at C6-7. Diffuse facet arthrosis is evident. IMPRESSION: Prevertebral soft tissues are edematous. There are deformities in the posterior aspect of C1 and C2, an equivocal anterior listhesis of C2 on C3. *POC GLUCOSE BATTERY Collected: 07/28/2018 Status: F Source: [facility] 5:47 AM [facility] REPOSITORY TYPE CODE TESTS RESULT OUT OF REFERENCE UNITS RANGE LAB GLUP 70-99 mg/dL High Glucose (poc 160 device) Result Comment: No BRAVE per RN: PATIENT TYPE LAB PCSTYP *POC Capillary SAMPLE TYPE Blood Observed: 07/28/2018 Status: F Source: [facility] TYPE AND CROSS 4:10 AM [facility] REPOSITORY ABO/RH(D): A POSITIVE ANTIBODY SCREEN: NEGATIVE Performed By: #### XM #### [address] [address] IONIZED CALCIUM Collected: 07/28/2018 Status: F Source: [facility] 4:04 AM [facility] REPOSITORY TYPE CODE TESTS RESULT OUT OF REFERENCE UNITS RANGE LAB ICA 4.60-5.30 mg/dL Low Ionized 4.18 Calcium Performed By: #### ICA, CBCDFC, CA, CHM6, IPB, MGO, PALB, PTPTT #### U [address] [address] CBC,PLATELET,DIFFERENTIAL - CCL Collected: Status: F Source: [facility] 07/28/2018 4:04 AM [facility] REPOSITORY TYPE CODE TESTS RESULT OUT OF REFERENCE UNITS RANGE LAB WBC 3.99-11.19 K/uL WBC Count 7.51 LAB RBC 3.91-5.04 M/uL RBC Count 3.25 Low LAB HGB 11.4-15.2 g/dL Hemoglobin 10.0 Low LAB HCT 34.9-44.3 % Hematocrit 30.2 Low LAB MCV 79.6-97.7 fL Mean Cell 92.9 Volume LAB MCH 25.9-33.9 pg Mean Cell 30.8 Hgb LAB MCHC 31.4-35.9 g/dL Mean Cell 33.1 Hgb Conc LAB RDW 10.8-14.9 % RBC 13.2 Distribution LAB PLT 150-393 K/uL Platelet 212 Count LAB MPV 8.5-12.2 fL Mean 10.0 Platelet Volume LAB NRBC 0.0-0.2 /100 WBC NUCLEATED 0.0 RBC LAB DTYPE Electronic DIFFERENTIAL TYPE Differential LAB IGRE % IMMATURE 0.5 GRANS % LAB SEGS % NEUTROPHIL 82.5 SEGMENTED LAB LYM % LYMPHOCYTE 9.2 % LAB MON % MONOCYTE % 7.5 LAB EOS % *EOSINOPHIL 0.0 % LAB BASO % BASOPHIL % 0.3 LAB IGABS 0.00-0.08 K/uL IMMATURE 0.04 GRANS ABSOLUTE LAB SBANS 1.64-7.28 K/uL SEGS + 6.20 Bands,Absolute LAB ALYM 1.16-3.51 K/uL Abs Lymph 0.69 Low LAB AMONO 0.22-0.87 K/uL Abs Durham 0.56 LAB AEOS 0.00-0.42 K/uL Abs Eos <0.04 LAB ABASO 0.00-0.15 K/uL Abs Baso <0.04 Performed By: #### ICA, CBCDFC, CA, CHM6, IPB, MGO, PALB, PTPTT #### [facility] [address] [place] [address] [address] [place] [address] CALCIUM Collected: 07/28/2018 Status: F Source: [facility] 4:04 AM [facility] REPOSITORY TYPE CODE TESTS RESULT OUT OF REFERENCE UNITS RANGE LAB CA 8.6-10.5 mg/dL Low Calcium 8.2 Performed By: #### ICA, CBCDFC, CA, CHM6, IPB, MGO, PALB, PTPTT #### [facility] [address] [address] [facility] [address] [address] CHEM 6 Collected: 07/28/2018 Status: F Source: [facility] 4:04 AM [facility] REPOSITORY TYPE CODE TESTS RESULT OUT OF REFERENCE UNITS RANGE LAB BUN 7-22 mg/dL BUN High 23 LAB NA 133-143 mmol/L Sodium 138 LAB K 3.5-5.0 mmol/L Potassium 4.1 LAB CL 98-108 mmol/L Chloride 108 LAB CO2 22-30 mmol/L Low Carbon Dioxide 21 LAB CREA 0.50-1.20 mg/dL Creatinine 0.67 LAB GAP 7-17 mmol/L Anion Gap 13 LAB BC BUN/CREA Ratio 34 LAB GFR >60 mL/min/1.73 sqM Est GFR,non >60 Burkinan LAB GFRA >60 mL/min/1.73 sqM Est GFR, >60 Performed By: #### ICA, CBCDFC, CA, CHM6, IPB, MGO, PALB, PTPTT #### [facility] [address] [place] [address] INORGANIC PHOSPHATE Collected: 07/28/2018 Status: F Source: [facility] 4:04 [facility] REPOSITORY TYPE CODE TESTS RESULT OUT OF REFERENCE UNITS RANGE LAB IP 2.2-4.6 mg/dL Inorg Phosphate 3.3 Performed By: #### ICA, CBCDFC, CA, CHM6, IPB, MGO, PALB, PTPTT #### [facility] [address] [place] [address] [address] MAGNESIUM Collected: 07/28/2018 Status: F Source: [facility] 4:04 AM [facility] REPOSITORY TYPE CODE TESTS RESULT OUT OF REFERENCE UNITS RANGE LAB MG 1.6-2.6 mg/dL Magnesium 2.0 Performed By: #### ICA, CBCDFC, CA, CHM6, IPB, MGO, PALB, PTPTT #### [facility] [address] [place] [address] [place] [address] PREALBUMIN Collected: 07/28/2018 Status: F Source: [facility] 4:04 AM [facility] REPOSITORY TYPE CODE TESTS RESULT OUT OF REFERENCE UNITS RANGE LAB PALB 17-34 mg/dL Prealbumin 22 Performed By: #### ICA, CBCDFC, CA, CHM6, IPB, MGO, PALB, PTPTT #### [facility] [address] [place] [address] [place] [address] PT*PTT Collected: 07/28/2018 Status: F Source: [facility] 4:04 AM [facility] REPOSITORY TYPE CODE TESTS RESULT OUT OF RANGE REFERENCE UNITS LAB PT 11.9-14.2 sec PT 14.2 LAB INR 0.9-1.1 INR 1.1 LAB PTT 24.0-34.3 sec PTT 25.0 Performed By: #### ICA, CBCDFC, CA, CHM6, IPB, MGO, PALB, PTPTT #### [facility] [address] [place] [address] [place] [address] *POC GLUCOSE BATTERY Collected: 07/27/2018 Status: F Source: [facility] 11:53 PM [facility] REPOSITORY TYPE CODE TESTS RESULT OUT OF REFERENCE UNITS RANGE LAB GLUP 70-99 mg/dL High Glucose (poc 147 device) Result Comment: No BRAVE per RN: PATIENT TYPE LAB PCSTYP *POC Capillary SAMPLE TYPE Blood CBC WITH DIFF CHIDI Collected: 07/27/2018 Status: F Source: [facility] 10:46 PM [facility] REPOSITORY TYPE CODE TESTS RESULT OUT OF REFERENCE UNITS RANGE LAB WBC 3.99-11.19 K/uL WBC Count 8.36 LAB RBC 3.91-5.04 M/uL RBC Count 3.40 Low LAB HGB 11.4-15.2 g/dL Hemoglobin 10.6 Low LAB HCT 34.9-44.3 % Hematocrit 31.8 Low LAB MCV 79.6-97.7 fL Mean Cell 93.5 Volume LAB MCH 25.9-33.9 pg Mean Cell 31.2 Hgb LAB MCHC 31.4-35.9 g/dL Mean Cell 33.3 Hgb Conc LAB RDW 10.8-14.9 % RBC 13.0 Distribution LAB PLT 150-393 K/uL Platelet 211 Count LAB MPV 8.5-12.2 fL Mean 9.9 Platelet Volume LAB NRBC 0.0-0.2 /100 WBC NUCLEATED 0.0 RBC LAB DTYPE Electronic DIFFERENTIAL TYPE Differential LAB IGRE % IMMATURE 0.4 GRANS % LAB SEGS % NEUTROPHIL 84.4 SEGMENTED LAB LYM % LYMPHOCYTE 8.6 % LAB MON % MONOCYTE % 6.3 LAB EOS % *EOSINOPHIL 0.1 % LAB BASO % BASOPHIL % 0.2 LAB IGABS 0.00-0.08 K/uL IMMATURE <0.04 GRANS ABSOLUTE LAB SBANS 1.64-7.28 K/uL SEGS + 7.05 Bands,Absolute LAB ALYM 1.16-3.51 K/uL Abs Lymph 0.72 Low LAB AMONO 0.22-0.87 K/uL Abs [place] 0.53 LAB AEOS 0.00-0.42 K/uL Abs Eos <0.04 LAB ABASO 0.00-0.15 K/uL Abs Baso <0.04 Performed By: #### HÉCTOR #### Chidi [facility] [address] [place] [address] PT/INR BATTERY - Collected: 07/27/2018 Status: F Source: [facility] 10:46 PM [facility] REPOSITORY TYPE CODE TESTS RESULT OUT OF RANGE REFERENCE UNITS LAB PT 11.9-14.2 sec PT 14.0 LAB INR 0.9-1.1 INR 1.1 Performed By: #### JOONDFJ #### Chidi [facility], [facility] [address] [place], [place] [address] CHEM 7 ED - CHRI Collected: 07/27/2018 Status: F Source: [facility] 10:46 PM [facility] REPOSITORY TYPE CODE TESTS RESULT OUT OF REFERENCE UNITS RANGE LAB BUN 7-22 mg/dL BUN High 24 LAB CREA 0.50-1.20 mg/dL Creatinine 0.68 LAB NA 133-143 mmol/L Sodium 138 LAB K 3.5-5.0 mmol/L Potassium 4.1 LAB CL 98-108 mmol/L Chloride 108 LAB CO2 22-30 mmol/L Carbon Dioxide 24 LAB GLUC 70-99 mg/dL Glucose High 155 LAB GFR >60 mL/min/1.73 sqM Est GFR,non >60 Burkinan LAB GFRA >60 mL/min/1.73 sqM Est GFR, >60 LAB GAP 7-17 mmol/L Anion Gap 10 LAB BC BUN/CREA Ratio 35 LAB OSMC 278-305 mOsm/kg Osmolality 297 (Calc) Performed By: #### CBCDFJ #### Chidi [place], [facility] [address] [place], [place] [address] ETHYL ALCOHOL, BLOOD Collected: 07/27/2018 Status: F Source: [facility] 10:46 PM [facility] REPOSITORY TYPE CODE TESTS RESULT OUT OF RANGE REFERENCE UNITS LAB ETOH <10 mg/dL Ethyl <10 Alcohol, blood Result Comment: For Medical Purposes Only, Non forensic Performed By: #### CBCDFJ #### Chidi [place], [facility] [facility] [address] [place] [address] EMERGENCY DEPARTMENT Observed: 07/27/2018 Status: F Source: [place] SUMMARY 8:43 PM [facility] REPOSITORY [facility] Medical Records Department [address] [place] [address] Emergency Department Summary 07/27/18 1816 MR#: [id number] Acct: [id number] Name: DANYELLE FERNANDEZ Rep #: [id number] : 1950 67 From: Earline Varghese MD PCP: OUT OF TOWN DOCTOR Status: REG ER - ER Visit Summary Date of Service: 07/27/18 Chief Complaint: Fall off horse History of Present Illness: The patient is a 67 F presenting after a fall off a horse. States the horse bucked and she fell. She was wearing a helmet. The horse is approximately 6 feet tall. She did hit her head but did not lose consciousness. She laid on the ground for 40 minutes before someone found her. When she was helped up she was able to ambulate. She has pain of her neck and upper back. She has tingling of both hands. She denies weakness. Denies any other complaints. Physical Examination: Vitals are stable. Patient is afebrile. Alert no acute distress. HEENT exam is unremarkable. Neck is diffuse tenderness, c-collar in place Lungs are clear and equal bilaterally. Heart is regular rate and rhythm. Abdomen is soft nontender nondistended. No guarding or rebound Back: Diffuse thoracic tenderness Extremities are unremarkable. Skin is warm and dry. No focal neurologic deficit. Normal strength bilaterally Remainder of exam is unremarkable. Emergency Department Course and Treatment: Patient was given morphine, Zofran IV. CBC, chemistries unremarkable other than glucose 125, BUN 27. CT brain shows no acute process. CT chest, abdomen and pelvis shows no acute process, constipation. CT lumbar spine shows grade 1 spondylolisthesis L5-S1. Severe narrowing of the neural foramina bilaterally at this level. CT cervical spine shows multiple fractures of C1 with slight posterior displacement of the arch. There is an anterior fracture involving the atlantoaxial articulation. Fracture through the body of C2 with separation of both pedicles from the vertebral body. Fracture through the spinous process of C6. No evidence of spinal stenosis. MRI of the cervical spine is recommended to rule out cord injury. CT thoracic spine shows normal alignment of the thoracic spine without acute fracture deformity. Mild degenerative disc changes of the mid and lower thoracic spine. CTA neck shows Jd burst fracture C1 and fracture C2 vertebral body. Avulsion fracture spinous process C6. Normal bilateral cervical carotid and vertebral arteries. Patient prefers [facility] for transfer. Discussed with [facility] transfer line and patient will be transferred by air to [facility]. Disposition: Transfer to [facility] Impression: Jd burst fracture C1, C2 vertebral body fracture, C6 spinous process fracture; status post fall from horse This note was generated with [employer] dictation software. It may contain incorrect words, spelling, and punctuation that were not noted in review of the chart prior to signing ED Disposition - Plan for ED Patient: Chief Complaint: Fall Referrals: Town Doctor,Out of [Primary Care Provider] - What to do if you have Problems For any increased pain, shortness of breath, bleeding, nausea or vomiting, chest pain, or any unexpected problems, contact your Primary Care Provider. Call [facility] ([phone]) or report to the closest Emergency Room. Call 911 if necessary. 07/27/182042 <Electronically signed by Earline Varghese MD> Date Earline [facility] Cosigner Signature (If Indicated): Date CC: OUT OF TOWN DOCTOR CBC W/DIFF, AUTOMATED Collected: 07/27/2018 Status: F Source: [place] 5:39 PM [facility] REPOSITORY TYPE CODE TESTS RESULT OUT OF RANGE REFERENCE UNITS LAB L100.1000 4.4-11.0 K/mm3 High WBC 11.7 LAB L100.1200 4.2-5.4 M/mm3 Low RBC 3.69 LAB L100.1300 12.0-15.0 g/dl Low HGB 11.3 LAB L100.1400 37-47 % Low HCT 34.1 LAB L100.1500 81-99 fL Normal MCV 92.4 LAB L100.1600 27.0-32.0 pg Normal MCH 30.6 LAB L100.1700 32-36 g/gl Normal MCHC 33.1 LAB L100.1810 11.6-14.6 % Normal RDW CV 13.2 LAB L100.1820 35.1-43.9 fl High RDW SD 44.2 LAB L100.1900 150-450 K/mm3 Normal PLT 246 LAB L100.2000 6.2-12.0 fl Normal MPV 9.5 LAB L100.2100 47-70 % High NEUT% 85.5 LAB L100.2200 19-41 % Low LY% 7.1 LAB L100.2300 0-10 % Normal MONO% 6.5 LAB L100.2400 0-5 % Normal EO% 0.4 LAB L100.2500 0-1 % Normal BASO% 0.3 LAB L100.2550 0.0-0.9 % Normal IM GRAN % 0.200 Result Comment: IG% - Immature Granulocytes (promyelocytes, myelocytes and metamyelocytes) > 1% indicates that a LEFT SHIFT is Present. LAB L100.2620 2.0-7.7 X10 3/uL High Absolute Neut 10.0 LAB L100.2720 0.83-4.51 X10 3/ul Normal Absolute Lymph 0.83 Performed By: #### L100.0100 #### [facility] [address] [place], [address] BASIC METABOLIC Collected: 07/27/2018 Status: F Source: [place] PROFILE (BMP) 5:39 PM [facility] REPOSITORY TYPE CODE TESTS RESULT OUT OF RANGE REFERENCE UNITS LAB L501.0100 74-106 mg/dL High GLU 125 Result Comment: Fasting Glucose result from 100 to 125 mg/dL suggests IMPAIRED HOMEOSTASIS per A.D.A. criteria. Please note revised GLUCOSE reference range effective 2017. LAB L501.1000 7-18 mg/dL High BUN 27 LAB L501.1100 0.55-1.02 mg/dL Normal CREAT,SERUM 0.84 Result Comment: The validity of the calculated GFR AND GFRAA in patients over 70 years has not been determined. Clinical correlation is essential. LAB L501.1110 >60 mL/min Normal EST GFR 72 Result Comment: Non- GFR Calc LAB L501.1115 >60 mL/min Normal EST GFR - AA 87 Result Comment: GFR Calc LAB L501.1255 ml/min Normal Estimated CRCL 58.48 LAB L501.1300 10-20 RATIO High BUN/CRE 32.2 LAB L501.2200 8.5-10 mg/dL Normal .1 CA 8.5 LAB L501.5300 136-14 mmol/L Normal 5 NA 140 LAB L501.5600 3.5-5. mmol/L Normal 1 K 3.7 LAB L501.5900 98-107 mmol/L High CL 108 LAB L501.6100 21.0-3 mmol/L Normal 2.0 CO2 25.0 LAB L501.6200 5-15 Normal GAP 7 Performed By: #### L500.2500 #### [facility] [address] [place], [address] ABDOMEN/PELVIS W IV CONT Observed: 07/27/2018 Status: F Source: [place] ONLY 5:23 PM [facility] REPOSITORY [facility] Imaging Services [address] [place] [address] Abdomen/Pelvis W IV Cont ONLY MR#: [id number] Acct: [id number] Name: DANYELLE FERNANDEZ Rep #: [id number] : 1950 F 67 From: Edward Faust DO PCP: OUT OF TOWN DOCTOR Status: REG ER Study: Abdomen/Pelvis W IV Cont ONLY Date of Exam: 07/27/18 Exam# [id number] Ordering Dr: Earline Varghese MD STUDY: CT ABDOMEN AND PELVIS WITH CONTRAST REASON FOR EXAM: Female, 67 years old. Trauma. Fall from horse. RADIATION DOSAGE (If Supplied By Facility): CTDIvol = ( 17.76 ) mGy, DLP = ( 2166.88 ) mGycm TECHNIQUE: Transaxial images were obtained from the dome of the diaphragm to the symphysis pubis without oral contrast. 100 ml of Isovue 370 contrast was administered. Sagittal and coronal images were reconstructed. Individualized dose optimization techniques were used for this CT. COMPARISON: None. FINDINGS: There is a 1 cm calcified granuloma in the left lateral costophrenic angle. The lungs appear otherwise clear. The visualized portions of the heart are within normal limits. Normal liver. Normal gallbladder and extrahepatic biliary system. Normal spleen. Normal pancreas. Normal bilateral adrenal glands. Normal right kidney. Normal left kidney. Normal visualized stomach. Normal small intestine. There is large amount feces throughout the colon without mass or obstruction. The appendix is visualized and appears normal. There is diffuse atherosclerotic calcification of the abdominal aorta, without a demonstrated aneurysm. Normal inferior vena cava. Normal retroperitoneum. Normal urinary bladder. Uterus is retroverted but otherwise unremarkable. There is no adnexal mass. Distal pelvic lymphadenopathy. No free air or free fluid is seen within the peritoneal cavity. Normal abdominal wall. Are degenerative changes of the lumbar spine. There is anterolisthesis of L5 on S1 of 7 mm with evidence of a right sided pars defect. No evidence of acute fracture. CT/Abdomen/Pelvis W IV Cont ONLY IMPRESSION: 1. No acute intra-abdominal or pelvic abnormality. 2. Old granulomatous disease. 3. Large amount colonic feces consistent with constipation. 4. Anterolisthesis of L5 on S1 with right-sided pars defect. Electronically Signed: Edward BullardonDO at 19:54 EST Tel [phone], Service support , CC: Earline Varghese MD; OUT OF TOWN DOCTOR Engraver Flatware: Signed SPINE LUMBAR WITHOUT Observed: 07/27/2018 Status: F Source: [place] CONTRAST 5:23 PM [facility] REPOSITORY [facility] Imaging Services [address] [place] [address] Spine Lumbar without Contrast MR#: [id number] Acct: [id number] Name: DANYELLE FERNANDEZ Rep #: [id number] : 1950 F 67 From: Armen Barrientos MD PCP: OUT OF TOWN DOCTOR Status: REG ER Study: Spine Lumbar without Contrast Date of Exam: 07/27/18 Exam# [id number] Ordering Dr: Earline Varghese MD STUDY: CT LUMBAR SPINE WITHOUT CONTRAST REASON FOR EXAM: Female, 67 years old. Fell from horse and injured low back RADIATION DOSAGE (If Supplied By Facility): CTDIvol = ( 30.08 ) mGy, DLP = ( 1129.59 ) mGycm TECHNIQUE: The patient was scanned in a multi detector CT scanner. High resolution transaxial imaging was performed. Images were obtained from thoracic spine to coccyx. Sagittal and coronal images were reconstructed. Individualized dose optimization techniques were used for this CT. COMPARISON: None FINDINGS: Normal lumbar lordosis. Mild levoconvex scoliosis. Normal vertebrae of the lumbar spine. 1 cm anterior subluxation L5 on S1. No definite pars defects. L1-2: Normal endplates. Normal disc height and morphology. Normal bilateral facet joints. Normal central canal and bilateral lateral recesses. Normal bilateral intervertebral neural foramina. L2-3: Normal endplates. Normal disc height and morphology. Normal bilateral facet joints. Normal central canal and bilateral lateral recesses. Narrowed right intervertebral neural foramina. L3-4: Normal endplates. Normal disc height and morphology. Normal bilateral facet joints. Normal central canal and bilateral lateral recesses. Normal bilateral intervertebral neural foramina. L4-5: Normal endplates. Normal disc height and morphology. Normal bilateral facet joints. Normal central canal and bilateral lateral recesses. Normal bilateral intervertebral neural foramina. L5-S1: Unroofing of the posterior disc and severe narrowing of the neural foramina bilaterally. Central canal is patent. Normal visualized paraspinous soft tissue structures. CT/Spine Lumbar without Contrast IMPRESSION: Grade 1 spondylolisthesis L5-S1. Severe narrowing of the neural foramina bilaterally at this level. Electronically Signed: Armen Barrientos MD at 19:56 EST , Service support , CC: Earline Varghese MD; OUT OF TOWN DOCTOR Engraver Flatware: Signed CHEST WITH CONTRAST Observed: 07/27/2018 Status: F Source: [place] 5:23 PM [facility] REPOSITORY [facility] Imaging Services [address] [place] [address] Chest WITH Contrast MR#: [id number] Acct: [id number] Name: DANYELLE FERNANDEZ Rep #: [id number] : 1950 F 67 From: Edward Faust DO PCP: OUT OF TOWN DOCTOR Status: REG ER Study: Chest WITH Contrast Date of Exam: 07/27/18 Exam# [id number] Ordering Dr: Earline Varghese MD STUDY: CT CHEST WITH CONTRAST REASON FOR EXAM: Female, 67 years old. Fall from horse. Trauma. RADIATION DOSAGE (If Supplied By Facility): CTDIvol = ( 17.76 ) mGy, DLP = ( 2166.88 ) mGycm TECHNIQUE: Transaxial imaging was performed following intravenous administration of 100 ml of Isovue 370 contrast material. Multiplanar coronal and sagittal images were reformatted. Individualized dose optimization techniques were used for this CT. COMPARISON: None. FINDINGS: The lungs are well-expanded. There is no mass or infiltrate. There are minimal dependent changes posteriorly. There is no pneumothorax. There is no demonstrated pleural abnormality. Normal heart and pericardium. Normal mediastinum. Normal hilar regions. Normal enhanced pulmonary arteries. Normal aorta arch and descending thoracic aorta. Normal osseous structures. There is no demonstrated abnormality of the visualized upper abdomen. CT/Chest WITH Contrast IMPRESSION: Normal enhanced CT Chest examination. Electronically Signed: Edward Faust DO at 20:00 EST Tel [phone], Service support , CC: Earline Varghese MD; OUT OF TOWN DOCTOR Engraver Flatware: Signed BRAIN/HEAD WITHOUT Observed: 07/27/2018 Status: F Source: [place] CONTRAST 5:23 PM [facility] REPOSITORY [facility] Imaging Services [address] [place] [address] Brain/Head without Contrast MR#: [id number] Acct: [id number] Name: DANYELLE FERNANDEZ Rep #: [id number] : 1950 F 67 From: Edward Faust DO PCP: OUT OF TOWN DOCTOR Status: REG ER Study: Brain/Head without Contrast Date of Exam: 07/27/18 Exam# [id number] Ordering Dr: Earline Varghese MD STUDY: CT BRAIN WITHOUT CONTRAST REASON FOR EXAM: Female, 67 years old. Trauma. Fell from horse. RADIATION DOSAGE (If Supplied By Facility): CTDIvol = ( 44.99 ) mGy, DLP = ( 829.85 ) mGycm TECHNIQUE: Transaxial CT imaging of the brain was performed without administration of intravenous contrast material. Individualized dose optimization techniques were used for this CT. COMPARISON: None. FINDINGS: Normal soft tissue structures. Normal calvarium. Normal size ventricles and extra-axial spaces for the patient's age. Normal white matter tracts of the cerebral hemispheres. Normal basal ganglia and thalami. Normal brainstem. Normal cerebellum. There is no intracranial hemorrhage. There are no findings of an acute ischemic infarction. Normal visualized paranasal sinuses. CT/Brain/Head without Contrast IMPRESSION: Normal unenhanced CT scan of the brain. Electronically Signed: Edward Faust DO at 20:01 EST Tel [phone], Service support , CC: Earline Varghese MD; OUT OF TOWN DOCTOR Engraver Flatware: Signed SPINE CERVICAL Observed: 07/27/2018 Status: F Source: [place] WITHOUT CONTRAS 5:23 PM [facility] REPOSITORY [facility] Imaging Services [address] [place] [address] Spine Cervical without Contras MR#: [id number] Acct: [id number] Name: DANYELLE FERNANDEZ Rep #: [id number] : 1950 F 67 From: Edward Faust DO PCP: OUT OF TOWN DOCTOR Status: REG ER Study: Spine Cervical without Contras Date of Exam: 07/27/18 Exam# [id number] Ordering Dr: Earline Varghese MD STUDY: CT CERVICAL SPINE WITHOUT CONTRAST REASON FOR EXAM: Female, 67 years old. Fall from horse. RADIATION DOSAGE (If Supplied By Facility): CTDIvol = ( 25.36 ) mGy, DLP = ( 565.18 ) mGycm TECHNIQUE: High resolution transaxial imaging was performed without contrast material. Sagittal and coronal images were reconstructed. Individualized dose optimization techniques were used for this CT. COMPARISON: None FINDINGS: Normal craniovertebral junction. There is a fracture of the anterior arch of C1 involving the anterior atlantoaxial joint. There are multiple fractures of the posterior arch with slight displacement. There is a coronal fracture through the body of C1 extending from the base of the odontoid downward to the inferior endplate with fracture line the body from the bilateral pedicles. Posterior arch of C2 is intact. There is no separation of the odontoid process from the body C2. Normal cervical lordosis. There is a fracture through the spinous process of C6. No other evidence of fracture is noted. C2-3: Normal endplates. Normal disc height and morphology. Normal central canal and intervertebral neuroforamina. C3-4: Normal endplates. Normal disc height and morphology. Normal central canal and intervertebral neuroforamina. C4-5: Normal endplates. There is minimal loss of disc height. There is mild facet and uncovertebral joint degenerative changes. Normal central canal and intervertebral neuroforamina. C5-6: Slight loss of disc height with facet joint degenerative change. There is mild facet and uncovertebral joint degenerative change. Normal central canal. There is narrowing of the bilateral intervertebral neuroforamina. C6-7: Normal endplates. Normal disc height and morphology. Is minimal facet and uncovertebral joint degenerative change. Normal central canal and intervertebral neuroforamina. C7-T1: Normal endplates. Normal disc height and morphology. Normal central canal and intervertebral neuroforamina. There is thickening of the prevertebral soft tissues. CT/Spine Cervical without Contras IMPRESSION: 1. Multiple fractures of C1 with slight posterior displacement of the arch. There is an anterior fracture involving the atlantoaxial articulation. 2. Fracture through the body of C2 with separation of both pedicles from the vertebral body 3. Fracture through the spinous process of C6. 4. No evidence of spinal stenosis.. MRI of the cervical spine is recommended to rule out cord injury. Earline Varghese M.D., was advised of these findings via direct telephone communication 2011 EST on July 27, 2018. Electronically Signed: Edward Faust DO at 20:11 EST Tel [phone], Service support , CC: Earline Varghese MD; OUT OF TOWN DOCTOR Engraver Flatware: Signed CTA NECK W/WO Observed: 07/27/2018 Status: F Source: [place] CONTRAST 5:23 PM [facility] REPOSITORY [facility] Imaging Services [address] [place] [address] CTA Neck W/WO Contrast MR#: [id number] Acct: [id number] Name: DANYELLE FERNANDEZ Rep #: [id number] : 1950 F 67 From: Armen Barrientos MD PCP: OUT OF TOWN DOCTOR Status: REG ER Study: CTA Neck W/WO Contrast Date of Exam: 07/27/18 Exam# [id number] Ordering Dr: Earline Varghese MD STUDY: CTA NECK WITH CONTRAST REASON FOR EXAM: Female, 67 years old. Fell from horse and injured neck RADIATION DOSAGE (If Supplied By Facility): CTDIvol = ( 17.76 ) mGy, DLP = ( 2166.88 ) mGycm TECHNIQUE: CT angiography with multi-detector data acquisition was performed from the aortic arch to the skull base following intravenous administration of 100 ml of Isovue 370 contrast. MIP images were reconstructed from the axial data set. Post-processing of the angiographic images was performed, with multiplanar reformation and 3D reconstruction. Individualized dose optimization techniques were used for this CT. COMPARISON: None. FINDINGS: Fracture anterior ring of C1 and posterior arch bilaterally. Midline posterior dysraphism. There is also a nondisplaced fracture in the coronal plane of the C2 vertebral body extending into the transverse foramina bilaterally. Avulsion fracture spinous process C6. AORTIC ARCH: Normal visualized aortic arch. Normal origins of the brachiocephalic, left common carotid, and left subclavian arteries. RIGHT CAROTID ARTERIES: Normal right common carotid artery (CCA). Normal right common carotid bulb. Normal origin of the right internal carotid (ICA) artery without a hemodynamically significant stenosis. Normal visualized cervical portion of the right internal carotid artery. Normal origin of the right external carotid artery (ECA). LEFT CAROTID ARTERIES: Normal left common carotid artery (CCA). Normal left common carotid bulb. Normal origin of the left internal carotid (ICA) artery without a hemodynamically significant stenosis. Normal visualized cervical portion of the left internal carotid artery. Normal origin of the left external carotid artery (ECA). VERTEBRAL ARTERIES: Normal bilateral vertebral arteries. IMPRESSION: Jd burst fracture C1 and fracture C2 vertebral body. Avulsion fracture spinous process C6. Please see CT cervical spine for better detail. Normal bilateral cervical carotid and vertebral arteries. N.B. : The above information has been verbally conveyed by Armen Barrientos MD to Earline Varghese MD, on 07/27/2018 20:17:42 (ET). Electronically Signed: Armen Barrientos MD at 20:09 EST , Service support , CT/CTA Neck W/WO Contrast CC: Earline Varghese MD; OUT OF TOWN DOCTOR Engraver Flatware: Signed SPINE THORACIC Observed: 07/27/2018 Status: F Source: [place] WITHOUT CONTRAS 5:23 PM [facility] REPOSITORY [facility] Imaging Services [address] [place] [address] Spine Thoracic without Contras MR#: [id number] Acct: [id number] Name: DANYELLE FERNANDEZ Rep #: [id number] : 1950 F 67 From: Isaura Felipe MD PCP: OUT OF TOWN DOCTOR Status: REG ER Study: Spine Thoracic without Contras Date of Exam: 07/27/18 Exam# [id number] Ordering Dr: Earline Varghese MD STUDY: CT THORACIC SPINE WITHOUT CONTRAST REASON FOR EXAM: Female, 67 years old. Back pain after falling from a horse. RADIATION DOSAGE (If Supplied By Facility): CTDIvol = ( 29.82 ) mGy, DLP = ( 1119.66 ) mGycm TECHNIQUE: The patient was scanned in a multi detector CT scanner. High resolution imaging was performed. Images were obtained from T1 to L1. Sagittal and coronal images were reconstructed. Individualized dose optimization techniques were used for this CT. COMPARISON: None. FINDINGS: Normal kyphosis of the thoracic spine. There is no substantial scoliosis. Normal thoracic vertebrae and endplates. Mild degenerative disc changes of the mid and lower thoracic spine. Negative for fracture of the thoracic spine. The soft tissue structures are unremarkable. CT/Spine Thoracic without Contras IMPRESSION: Normal alignment of the thoracic spine without acute fracture deformity. Mild degenerative disc changes of the mid and lower thoracic spine. Electronically Signed: Isaura Felipe MD at 20:18 EST , Service support , CC: Earline Varghese MD; OUT OF TOWN DOCTOR Engraver Flatware: Signed PROGRESS Observed: 10/16/2017 Status: COMPLETED Source: [place] 4:22 PM [facility] REPOSITORY HNO ID: [id number] Author: William Recio) Gamaliel Service: (none) Author Type: Physician Type: Progress Notes Filed: 10/16/2017 5:03 PM Note Text: Chief Complaint Patient presents with: [facility] follow up HPI Danyelle Fernandez is a 66 year old female who presents here today for ER Follow Up.. Patient was seen on 10/14 for complaint of dog bite to left hand. Bitten by own dog on non dominant hand. Was found to have puncture wound over thenar eminence with lymphangitis to the antecubital fossa and slight soft tissue swelling and erythema without warmth or induration over the left thumb. Obtained xray showing no evidence of foreign body, abnormality to the bone, or soft tissue air. Required IANDD along with 3g IV Unasyn piggyback. Cavity irrigated and wick placed. Discharged home with Augmentin 875 mg BID for 7 days and advised to follow up in 2 days for repeat evaluation. Since discharge, patient has been taking augmentin as prescribed without side effects. Still has wick in place. Erythema has improved along with swelling and pain. Denies fever, chills, nausea, vomiting, diarrhea. Past medical history, appointments, medications, allergies reviewed. Previous Medical History PAST MEDICAL HISTORY Diagnosis Date - Undiagnosed cardiac murmurs Previous Surgical History PAST SURGICAL HISTORY Procedure Laterality Date - BREAST BIOPSY left breast - DELIVERY ONLY 1985 , low cervical - COLONOSCOP W/ OR W/O [facility] SPEC 08/03/2006 Colonoscopy - EXTRACTION ERUPTED TOOTH wisdom teeth - PAST SURGICAL HISTORY OF right hand index finger Family History FAMILY HISTORY Problem Relation Age of Onset - Psychiatry Father suicide age 30 - Hypertension Mother Patient Allergies ALLERGIES Allergen Reactions - Seasonal Allergies Other: See Comments Current Medications Current Outpatient Prescriptions on File Prior to Visit: multivitamin tablet Take 1 tablet by mouth once daily. Occasional Ibuprofen 200 mg cap Take 400 mg by mouth as needed. No current facility-administered medications on file prior to visit. 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 Skin: Wick in place in left thenar eminence with minimal swelling, no erythema or warmth to touch. Health Maintenance List PNEUMOVAX AGE 65 AND OVER WITH 5YR LOOKBACK(1) due on 11/23/2015 TETANUS due on 09/26/2017 MAMMOGRAM due on 12/07/2017 DIABETES SCREEN due on 10/20/2018 LIPID SCREEN due on 01/03/2022 COLORECTAL CANCER SCREENING,SEE MODIFIER due on 01/04/2027 BONE DENSITY Completed ADULT PREVNAR-13 Completed INFLUENZA Completed HEPATITIS C SCREENING Completed ASSESSMENT/PLAN: 1. Dog bite, subsequent encounter - ICD9: V58.89, 879.8, ICD10: W54.0XXD (primary diagnosis) Wick removed and covered with triple abx ointment and non adherent pad. Continue abx as prescribed, to call at end of course and if wound has not closed would give additional abx for 3-7 days. Discussed wound care at home. To call with signs of worsening infection. 2. Cellulitis of skin - ICD9: 682.9, ICD10: L03.90 See above. 3. Hospital discharge follow-up - ICD9: V67.59, ICD10: Z09 Improving on current treatment. 4. Ruptured Bakers cyst - ICD9: 727.51, ICD10: M66.0 Patient requesting referral to ortho for history of ruptured pagan's cyst of left knee and torn meniscus found in [place] back in September. - CONSULT TO ORTHOPAEDICS I spent 25 minutes in the visit, with more than 50% of the total urrd-io-jdlz time of the visit in counseling / coordination of care. William Alston MD EMERGENCY DEPARTMENT Observed: 10/14/2017 Status: F Source: [place] SUMMARY 3:42 PM [facility] REPOSITORY [facility] Medical Records Department [address] [place] [address] Emergency Department Summary 10/14/17 1427 MR#: [id number] Acct: [id number] Name: DANYELLE FERNANDEZ Rep #: [id number] : 1950 66 From: Preston Cook MD PCP: Care Physician, No Primary Status: REG ER - ER Visit Summary Date of Service: 10/14/17 Chief Complaint: Dog bite left hand History of Present Illness: The patient is a 66 F is right- handed. Her dog bit her left hand yesterday. She has a puncture wound over the thenar eminence with lymphangitis to the antecubital fossa. There is slight soft tissue swelling erythema without warmth or induration of the left thumb. Patient does have history of valvular heart disease, mitral. She denies history of rheumatic fever, SBE, or be immune suppressed for any reason. She denies any antibiotic allergies. She reports pain with movement. Physical Examination: Vital signs are remarkable for an elevated blood pressure of 141/79. There is a puncture wound over the thenar eminence. Palpation of the area results and brown purulent material. There is lymphangitis to the antecubital fossa. There is no epitrochlear or axillary lymphadenopathy. There is no warmth, induration or fluctuance noted of the thumb or hyperthenar eminence. There is soft tissue swelling and fullness. Heart is regular without murmur, gallop or rub. S1 and S2 are normal. Lungs are clear to auscultation with good movement of air bilaterally. Test Results: Three-view x-ray of the hand was obtained with no evidence of foreign body, abnormality the bone or soft tissue air. Emergency Department Course and Treatment: 3 view x-ray of the hand was obtained to evaluate for fractured tooth. Patient will require incision and drainage of the area and irrigation of the area. Since this injury is secondary to a dog bite she received 3.0 g of Unasyn IV piggyback. Since this lymphangitic streak started less than 24 hours most likely this represents a strep infection. Treatment Plan: The thenar eminence was anesthetized with lidocaine by local nutrition. Incision was made. Blunt dissection was undertaken with bloody brown material noted. The cavity was irrigated. A wick was placed. The wound will be dressed. She did receive 3.0 g of Unasyn in the department. Constantine Urbina iii was paged to assure follow-up on Monday for wound check. Disposition: Discharged home with appropriate home-going instructions and prescription for Augmentin 875 mg twice daily #14 Impression: Dog bite/puncture wound thenar eminence left hand with lymphangitis This note was generated with [employer] dictation software. It may contain incorrect words, spelling, and punctuation that were not noted in review of the chart prior to signing ED Disposition - Plan for ED Patient: Disposition: Home or Assisted Living Chief Complaint: Bite Instructions: ED Bite Dog, ED Infec Skin Cellulitis Prescriptions: Amoxicillin/Potassium Clav [Augmentin 875-125 Tablet] 1 ea PO BID #14 tab Referrals: NOT,DEFINED [NON-STAFF] - Constantine Urbina III, MD [STAFF PHYSICIAN] - 2 Days for wound check Additional Instructions: Do not remove dressing and keep absolutely clean and dry. Dr. Constantine Urbina iii was made aware of your presentation and need for follow-up on Monday. What to do if you have Problems For any increased pain, shortness of breath, bleeding, nausea or vomiting, chest pain, or any unexpected problems, contact your Primary Care Provider. Call [facility] ([phone]) or report to the closest Emergency Room. Call 911 if necessary. 10/14/17 7899 <Electronically signed by Preston Cook MD> Date Preston Cook MD Cosigner Signature (If Indicated): Date CC: No Primary Care Physician; Constantine Urbina III, MD HAND MIN 3 VIEWS Observed: 10/14/2017 Status: F Source: RIGOBERTO 2:26 PM [facility] REPOSITORY [facility] Imaging Services [address] [place] [address] Hand Min 3 Views MR#: [id number] Acct: [id number] Name: DANYELLE FERNANDEZ Rep #: [id number] : 1950 F 66 From: Josue Redman MD PCP: Care Physician, No Primary Status: REG ER Study: Hand Min 3 Views Date of Exam: 10/14/17 Exam# [id number] Ordering Dr: Preston Cook MD STUDY: X-RAY - LEFT HAND REASON FOR EXAM: Female, 66 years old. Dogbite yesterday. Pain at base of thumb. TECHNIQUE: 6 view(s) of the hand. COMPARISON: None. FINDINGS: Bones: There are no acute osseous abnormalities. Joints: There is mild osteoarthritic changes. Soft tissues: The soft tissues are unremarkable. Foreign body: None RAD/Hand Min 3 Views IMPRESSION: Osteoarthritic changes with no acute pathology. Electronically Signed: Josue Redman MD at 15:44 EST , Service support , CC: No Primary Care Physician; Preston Cook MD Eng[employer] Flatware: Signed ALLERGIES ALLERGIES DATE TYPE / CODE NAME / CODE REACTION SEVERITY SOURCE 07/27/2018 Drug No Known Unknown [facility] Allergy/416 Allergies/J19899 Hospital 592889(SNOM 0388(RXNORM) Repository ED CT) 05/22/2017 Environ/420 SEASONAL OTHER: SEE C [facility] 823685(SNOM ALLERGIES [place] ED CT) Repository ENCOUNTERS ENCOUNTERS ADMIT/DISCHARGE ACCOUNT NUMBER ADMITTING ENCOUNTER LOCATION SOURCE CLASS 09/25/2018 [id number] Ambulatory Building:[facility] Repository 09/25/2018 [id number] Ambulatory Building:[facility] Repository 09/07/2018 [id number] Ambulatory Building:[facility] Repository 09/07/2018 [id number] Ambulatory Building:[facility] Repository 08/27/2018/08/27/20 [id number] Ambulatory [address] Repository 08/21/2018 [id number] Ambulatory [facility] ding:OT Repository 08/21/2018/08/22/20 [id number] Ambulatory [address] Repository 08/20/2018 [id number] Ambulatory Building:[facility] Repository 08/20/2018 [id number] Ambulatory Building:[facility] Repository 08/03/2018/08/15/20 [id number] CAROL, Inpatient Building:[facility] [place] [address] VELIMIR Encounter oom: [place] 4136Bed: [facility] Repository 07/30/2018 [id number] Ambulatory Building:[facility] Repository 07/27/2018/08/03/20 [id number] OPAL, Inpatient Building:[facility] [place] [address] IHAB O Encounter Room: [place] 0718Bed: A [facility] Repository 07/27/2018/07/27/20 [id number] Emergency [address] ding:ED Repository 07/27/2018/07/28/20 [id number] Unknown [facility]ulatory [facility] Repository 10/16/2017/10/19/19 [id number] Ambulatory [address] Repository 10/14/2017/10/14/19 [id number] Emergency [place] [address] ding:ED Repository PAYERS PAYERS ENCOUNTER GUARANTOR PAYER SUBSCRIBER SOURCE 09/25/2018 DANYELLE [facility]: [place] [id number] BOX AND BPolicy Number: [id number] [id number] BOX Center [address]Iul: (953) Date:Plan Name:[address] Repository [phone] (HP) 769[address]Ogj: (HP) 09/25/2018 Secondary Insurance[facility] University Number: [id number] Memorial Hospital [id number] BOX Center Date:2597-02-94Jryw [address] [place] [address] Repository Name:MANAGED CARE[address] [address]Was: [phone] [place], [place] [phone] () 53166LW: 09/25/2018 DANYELLE Primary [facility]LE [facility] Insurance:[facility]ICARE A [facility]: [place] [id number] BOX AND BPolicy Number: [id number] [id number] BOX Center [address]Cju: (330) Date:Plan Name:[address] Repository [phone] () [phone]: (HP) 09/25/2018 Secondary Insurance:MMO [facility]: University Number: [id number] Memorial Hospital [id number] BOX Center Date:1944-69-21Kayn [address] [place] [address] Repository Name:MANAGED CAREPO [address] [address]Ljh: [phone] [address], [place] [phone] () 75379IZ: 09/07/2018 DANYELLE Primary [facility]LE [facility] Insurance:MEDICARE A MILLANDOB: [place] [id number] BOX AND BPolicy Number: [id number] [id number] BOX Center [address]Ucb: (330) Date:Plan Name:[address] Repository [phone] () 60078Utu: (HP) 09/07/2018 Secondary Insurance:MMO [facility] University Number: [id number] Memorial Hospital [id number] BOX Center Date:3041-89-00Cswf [address] [place] [address] Repository [facility] [address]Stu: [phone] [address], [place] [phone] () 38588SV: 09/07/2018 DANYELLE Primary [facility]LE [facility] Insurance:[facility]ICARE A [facility]: [place] [id number] BOX AND BPolicy Number: [id number] [id number] BOX [place] [address]Fvo: (330) Date:Plan Name:[address] Repository [phone] () 54224Yye: (HP) 09/07/2018 Secondary Insurance:MMO [facility]: University Number: [id number] Memorial Hospital [id number] BOX Center Date:3581-24-02Qskg [address] [place] [address] Repository Name:MANAGED CAREPO [address] [address]Cpb: [phone] [address], [place] [phone] () 88[address]PB: 08/21/2018 JESUS Calhoun Primary DANYELLE [place] [facility] Insurance:MEDICARE PART [facility]: [address] A BPolicy Number: [id number] Hospital 60[address]Kat: (330) [id number] Repository [phone] () Date:2016-10-05 08/21/2018 Secondary DANYELLE [place] Insurance:[facility]ICAL [facility]: [facility] [id number] Hospital Number: Repository [id number] Date:1980-76-50SM BOX [address] [place] [address]VO: 08/21/2018 Tertiary Insurance:SELF NOT GIVENUNK Rigoberto [facility] Number: Effective Hospital Date:2018-08-13 Repository 08/20/2018 DANYELLE Primary [facility] Insurance:[facility] A [facility]: [place] [id number] BOX AND BPolicy Number: [id number] [id number] BOX Center [address]Riy: ([phone]) Date:Plan Name:[address] Repository [phone] () 26889Esa: () 08/20/2018 Secondary Insurance:O [facility]: [place] Number: [id number] Memorial Hospital [id number] BOX [place] Date:7047-94-56Hntb[address] Repository Name:[facility] [address]Wta: [phone]) [address], [place] [phone] () [address]OB: 08/20/2018 DANYELLE Primary [facility]: Insurance:[facility]ICARE A [facility]: [place] [id number] BOX AND BPolicy Number: [id number] [id number] BOX Center [address]Wqy: (330) Date:Plan Name:[address] Repository [phone] () 04137Zji: () 08/20/2018 Secondary Insurance:MMO [facility]: University Number: [id number] Memorial Hospital [id number] BOX Center Date:3420-79-34Fmwl [address] [place] [address] Repository Name:MANAGED CAREPO [address] [address]Xlq: [phone] [address], [place] [phone] (HP) 45440AX: 08/03/2018 DANYELLE Primary [facility]: Insurance:MEDICARE A [facility]: [place] [id number] BOX AND BPolicy Number: [id number] [id number] BOX Center [address]Nxc: 330) Date:Plan Name:[address] Repository [phone] () 55473Sle: (HP) 08/03/2018 Secondary Insurance:MMO [facility]: University Number: [id number] Memorial Hospital [id number] BOX Center Date:3414-36-18Pbuv [address] [place] [address] Repository Name:MANAGED CAREPO [address] [address]Aoc: [phone] 60[place], [place] [phone] () 620[address]IT: 07/30/2018 DANYELLE Primary [facility]: Insurance:MEDICARE A [facility]: [place] [id number] BOX AND BPolicy Number: [id number] [id number] BOX Center [address]Dpw: (330) Date:Plan Name:[address] Repository [phone] (HP) 50[address]Zpw: (HP) 07/27/2018 DANYELLE Primary [facility]: Insurance:MEDICARE A [facility]: [place] [id number] BOX AND BPolicy Number: [id number] [id number] BOX Center [address]Rwx: ([phone]) Date:Plan Name:CARE [address] [place] [address] Repository [phone] (HP) [phone]: () 07/27/2018 Secondary Insurance:MMO [facility]LE [facility] University Number: [id number] [facility] [id number] BOX Center Date:8341-99-78Modq [address] [place] [address] Repository Name:[facility] CAREPO [address] [address]Fjg: [phone] [address] [place] [address] [phone] (HP) 71704UZ: 07/27/2018 JESUS Calhoun Primary DANYELLE Franklin [facility] Insurance:MEDICARE PART [facility]: [address] A BPolicy Number: [id number] [address]Sny: (365) [id number] Repository [phone] () Date:2018-07-27 07/27/2018 Secondary DANYELLE [place] Insurance:MEDICAL [facility]: [facility] [id number] Hospital Number: Repository [id number] Date:7332-30-96IK [address] [place] [address]QV: 07/27/2018 Tertiary Insurance:SELF NOT GIVENUNK Rigoberto PAY [facility] Number: Effective Hospital Date:2018-07-27 Repository 07/27/2018 DANYELLE Primary [facility]: Insurance:MEDICARE PART [facility]OB: System [id number] BOX APolicy Number: [id number] Repository [address] [place] [address] [id number] [address]Sfx: [phone]) Date:2017-09-[address] [place] [address] [phone] () [phone] 07/27/2018 Secondary [facility] Insurance:MEDICAL [facility]ENTERHOANDOB: System [place] [id number] Hospital BOX Number: [facility]1[place], [place] [id number] [address] Date:2017-09-04 10/14/2017 Jesus Calhoun Primary DANYELLE [place] [facility] Insurance:MEDICARE PART [facility]: [facility] 1081[facility] BPolicy Number: [id number] [facility] [address]Ssq: (887) [id number] Repository [phone] () Date:2017-10-14 10/14/2017 Secondary DANYELLE [place] Insurance:MEDICAL [facility]: [facility] [id number] Hospital Number: Repository [id number] Date:8527-69-22JZ [address], [place] [address]SA: 10/14/2017 Tertiary Insurance:[facility] [place] [facility]Y [facility] Number: Effective Hospital Date:2017-10-14 Repository
== END 2018-08-21 19:00 | disposition home or self-care (01) ==
LOC: OT 10:39
PROVIDERS: PCP Family Medicine
DX: R53.81 Other malaise (principal); S12.001D Unspecified nondisplaced fracture of first cervical vertebra, subsequent encounter for fracture with routine healing
CPT/HCPCS: 97162; 97165; 97166